=== PATIENT | male | born 1955 | race Caucasian/White ===

== ENCOUNTER 2020-07-23 10:43 | Outpatient (REF) | payer SELFPAY | END 2020-07-23 10:44 | disposition home or self-care (01) | LOC: HO.HAP 10:43 | PROVIDERS: Visit Provider Internal Medicine | DX: Z46.1 Encounter for fitting and adjustment of hearing aid (principal) | CPT/HCPCS: V5264 ==

== ENCOUNTER 2021-01-18 11:49 | Outpatient (REF) | payer MEDICARE, MEDICAID, OTHER, SELFPAY ==
[2021-01-18 14:39] LABS: SARS COV2 PCR INHOUSE NEGATIVE (Negative)
== END 2021-01-18 11:50 | disposition home or self-care (01) ==
LOC: HO.LAB 11:49
PROVIDERS: Visit Provider Internal Medicine
DX: Z20.822 Contact with and (suspected) exposure to COVID-19 (principal)
CPT/HCPCS: C9803; U0003

== ENCOUNTER 2021-01-28 07:05 | Outpatient (REF) | payer MEDICARE, OTHER, SELFPAY ==
[2021-01-28 07:51] LABS: MANUAL DIFF FLAG NO
[2021-01-28 07:53] LABS: Basophils Percent Auto 0.6 % (0-2); Eosinophils Absolute Auto 0.2 X10*3/uL (0.0-0.4); Eosinophils Percent Auto 3.1 % (0-4); Hematocrit 41.4 % (42-52); Hemoglobin 13.6 g/dl (14.0-18.0); Imm Gran Abs Auto 0.02 X10*3/uL (0.00-0.03); Imm Gran Pct Auto 0.3 % (0.0-0.4); Lymphocytes Percent Auto 30.4 % (20-40); Mean Corpuscular HGB Conc 32.9 g/dl (31.0-36.0); Mean Corpuscular Hemoglobin 30.2 pg (27.0-33.0); Mean Platelet Volume 10.7 fL (9.4-12.4); Monocytes Absolute Auto 0.7 X10*3/uL (0.1-1.2); Monocytes Percent Auto 10.1 % (2-11); Neutrophils Absolute Auto 3.7 X10*3/uL (2.0-8.3); Neutrophils Percent Auto 55.5 % (45-73); Platelet Count 226 X10*3/uL (160-400); Red Cell Distribution Width 12.8 % (11.0-16.0); White Blood Count 6.7 X10*3/uL (4.8-10.8)
[2021-01-28 08:19] LABS: Alanine Aminotransferase 27 U/L (0-40); Albumin Level 4.4 g/dL (3.5-5.0); Alkaline Phosphatase 90 U/L (39-117); Anion Gap 12 (12-20); Aspartate Amino Transferase 23 U/L (5-37); Bilirubin Total 0.7 mg/dL (0.0-1.0); Blood Urea Nitrogen 16 mg/dL (9-16); Calcium 9.2 mg/dL (8.4-10.2); Carbon Dioxide 26 mmol/L (22-29); Chloride 104 mmol/L (96-108); Cholesterol 178 mg/dL; Estimated Glomerular Filt Rate > 60; Glucose Fasting 97 mg/dL (60-99); HDL Cholesterol 47 mg/dL; LDL Cholesterol Calculated 100 mg/dl; Potassium 4.4 mmol/L (3.3-5.1); Sodium 138 mmol/L (135-145); Total Protein 7.1 g/dL (6.5-8.0); Triglycerides 157 mg/dL
[2021-01-28 08:30] LABS: Creatinine Urine 49.18 mg/dL; Microalbumin Urine < 5.0 mg/L
== END 2021-01-28 07:06 | disposition home or self-care (01) ==
LOC: HO.LAB 07:05
PROVIDERS: PCP Internal Medicine; Visit Provider Internal Medicine
DX: E78.5 Hyperlipidemia, unspecified (principal); I10 Essential (primary) hypertension; E78.00 Pure hypercholesterolemia, unspecified
CPT/HCPCS: 36415; 80053; 80061; 82043; 84443; 85025

== ENCOUNTER → 2021-06-21 09:44 | Outpatient (REF) | payer MEDICARE, OTHER, SELFPAY ==
--- NOTE | 2021-06-21 10:30 | CA_ITS ---
Transthoracic Echocardiogram Patient (Last, First, Middle): Bib Escalante P Gender: Male Date of : 1955 Age: 65 Procedure Date: 06/21/2021 Procedure Type: Transthoracic Echocardiogram Location: OP Height: 182.88 cm Weight: 108.86 kg BSA: 2.30 m2 Heart Rate: bpm BP: 120 / 80 mmHg Social Sciences Lecturer: KATHRYN Referring MD: James Martines MD Technical Account Executive: James Martines MD Symptoms: I71.2 THORACIC AA, I10 HTN, I49.3 PVCS Study Quality: Fair ECG Rhythm: Sinus Conclusions: - 1. Normal LV systolic function with grade 1 diastolic dysfunction 2. Mild aortic regurgitation 3. Mildly dilated ascending aorta at 4.4 cm 4. No pericardial effusion Findings Procedure Information Contrast agent, definity, is being given per protocol without apparent complications. Left Ventricle Normal left ventricular size, thickness, and systolic function. The visually estimated ejection fraction is between 60-65%. Spectral Doppler is indicative of an impaired relaxation filling pattern. E/E prime ratio is <8, consistent with normal filling pressures. Evidence suggests grade I (mild) diastolic dysfunction. Right Ventricle Normal right ventricular cavity size and systolic function. Atria The left atrium is normal in size. There is no evidence of interatrial shunt. The right atrium is normal in size. Aortic Valve There is mild calcification of the aortic valve. There is no aortic valve stenosis. There is mild aortic valve regurgitation. Mitral Valve Normal mitral valve structure and function. There is trace mitral valve regurgitation. There is no mitral valve stenosis. Pulmonic Valve The pulmonic valve was not well visualized. Tricuspid Valve Likely normal tricuspid valve structure and function. Tricuspid regurgitation envelope is inadequate for calculation of right ventricular systolic pressure. Great Vessels The pulmonary artery was not well visualized. There is mild dilatation of the ascending aorta measuring 4.40 cm. Venous The inferior vena cava is normal in size and collapses greater than 50% with inspiration. Pericardium/Pleural There is no evidence of pericardial effusion. Prior Study Comparison No significant change compared to prior study dated: 05/21/2020. Measurements 2D Linear Measurements IVSd: 1.31 0.6-0.9/0.6-1.0 cm LVIDd: 5.76 3.9-5.3/4.2-5.9 cm LVIDd Index: 2.50 2.4-3.2/2.2-3.1 cm/m2 LVIDs: 3.90 2.0-3.6 cm LVPWd: 1.05 0.7-1.1 cm Ao Root: 3.70 2.1-3.5 cm LA Diam: 3.40 2.7-3.8/3.0-4.0 cm LAIDs Index: 1.48 1.5-2.3 cm/m2 LV Mass: 358.06 67-162/88-224 g LV Mass Index: 155.68 43-95/49-115 g/m2 LVOT Diam: 2.20 3.0+(-)1.3 cm 2D Systolic Function EF 4C: 54.60 >55% EF 2C: 67.60 >55% EF BiP: 63.40 >55% Mitral Valve MV Pk E: 0.59 MV PK A: 0.80 MV Decel Time: 180.00 E/A: 0.70 E'Lateral: 6.96 E'Medial: 7.94 E/E' Med: 7.40 E/E' Lat: 8.40 PHT: 53.00 MVA PHT: 4.15 Decel Faulk: 3.27 Aortic Valve AoV Pk Robbin: 1.29 AoV Pk Grad: 7.00 LVOT LVOT Pk Robbin: 1.17 LVOT Mn Robbin: 0.74 LVOT VTI: 0.24 LVOT Pk Grad: 5.00 LVOT Mn Grad: 3.00 LVOT Diam: 2.20 LVOT Area: 3.80 Diastolic Function MV Pk E: 0.59 MV Pk A: 0.80 E/A: 0.70 E'Medial: 7.94 E/E' Med: 7.40 E' Laterial: 6.96 E/E' Lat: 8.40 Right Ventricle TAPSE (mm): 1.94 Tricuspid Valve RA Press: 3.00 Great Vessels Aorta Ao Root-2D: 3.70 2.0-3.7 cm Ao Asc: 4.40 2.1-3.4 cm Ao Arch: 3.70 Updated in Other Vendor System with Status of Final James Martines MD electronically signed on 06/21/2021 4:09:00 PM with status of Final
== END ==
LOC: HO.CARD 09:44
PROVIDERS: Visit Provider Internal Medicine Cardiovascular Disease
DX: I71.2 Thoracic aortic aneurysm, without rupture (principal); I10 Essential (primary) hypertension; I49.3 Ventricular premature depolarization
CPT/HCPCS: 93306; Q9957

== ENCOUNTER → 2021-07-04 08:22 | Outpatient (BNVA) | payer MEDICARE, OTHER, SELFPAY | PROVIDERS: PCP Internal Medicine; Referring Provider Internal Medicine; Visit Provider Internal Medicine Cardiovascular Disease | DX: I71.2 Thoracic aortic aneurysm, without rupture (principal); I10 Essential (primary) hypertension | CPT/HCPCS: 93005; 99212 ==

== ENCOUNTER 2021-07-14 06:03 | Outpatient (REF) | payer MEDICARE, MEDICAID, SELFPAY ==
[2021-07-14 07:19] LABS: MANUAL DIFF FLAG NO
[2021-07-14 07:29] LABS: Basophils Absolute Auto 0.1 X10*3/uL (0.0-0.2); Basophils Percent Auto 0.6 % (0-2); Eosinophils Absolute Auto 0.3 X10*3/uL (0.0-0.4); Eosinophils Percent Auto 3.7 % (0-4); Hematocrit 41.7 % (42-52); Hemoglobin 13.8 g/dl (14.0-18.0); Imm Gran Abs Auto 0.03 X10*3/uL (0.00-0.03); Imm Gran Pct Auto 0.4 % (0.0-0.4); Lymphocytes Absolute Auto 2.4 X10*3/uL (1.2-4.9); Lymphocytes Percent Auto 29.6 % (20-40); Mean Corpuscular HGB Conc 33.1 g/dl (31.0-36.0); Mean Corpuscular Hemoglobin 30.5 pg (27.0-33.0); Mean Corpuscular Volume 92.3 fL (80-98); Monocytes Absolute Auto 0.7 X10*3/uL (0.1-1.2); Neutrophils Absolute Auto 4.6 X10*3/uL (2.0-8.3); Neutrophils Percent Auto 56.7 % (45-73); Platelet Count 256 X10*3/uL (160-400); Red Blood Count 4.52 X10*6/uL (4.60-5.80); Red Cell Distribution Width 13.2 % (11.0-16.0); White Blood Count 8.1 X10*3/uL (4.8-10.8)
[2021-07-14 07:37] LABS: Appearance Urine CLEAR; Color Urine YELLOW; Glucose Urine UA NEG (NEG); Leukocyte Esterase Urine NEG (NEG); Nitrite Urine NEG (NEG); Urine Blood NEG (NEG); Urine Ketones NEG (NEG); Urine Protein NEG (NEG-TRACE)
[2021-07-14 07:45] LABS: Alanine Aminotransferase 22 U/L (0-40); Albumin Level 4.5 g/dL (3.5-5.0); Alkaline Phosphatase 97 U/L (39-117); Anion Gap 13 (12-20); Aspartate Amino Transferase 21 U/L (5-37); Bilirubin Total 0.6 mg/dL (0.0-1.0); Blood Urea Nitrogen 11 mg/dL (9-16); Calcium 9.9 mg/dL (8.4-10.2); Carbon Dioxide 25 mmol/L (22-29); Chloride 104 mmol/L (96-108); Cholesterol 176 mg/dL; Estimated Glomerular Filt Rate > 60; Glucose Fasting 92 mg/dL (60-99); HDL Cholesterol 47 mg/dL; LDL Cholesterol Calculated 103 mg/dl; Potassium 4.6 mmol/L (3.3-5.1); Sodium 137 mmol/L (135-145); Total Protein 7.1 g/dL (6.5-8.0); Triglycerides 133 mg/dL
[2021-07-14 07:55] LABS: Estimated Average Glucose 120 mg/dL; Hemoglobin A1c % 5.8 %
[2021-07-14 08:06] LABS: TSH reflex Free T4 0.98 uIU/mL (0.32-4.0)
== END 2021-07-14 06:04 | disposition home or self-care (01) ==
LOC: HO.LAB 06:03
PROVIDERS: PCP Internal Medicine; Visit Provider Internal Medicine
DX: I10 Essential (primary) hypertension (principal); R73.01 Impaired fasting glucose; E78.00 Pure hypercholesterolemia, unspecified; E66.9 Obesity, unspecified; R00.2 Palpitations
CPT/HCPCS: 36415; 80053; 80061; 81003; 83036; 84443; 85025

== ENCOUNTER 2022-01-09 12:14 | Outpatient (REF) | payer SELFPAY | END 2022-01-09 12:15 | disposition home or self-care (01) | LOC: HO.HAP 12:14 | PROVIDERS: Visit Provider Internal Medicine | DX: Z46.1 Encounter for fitting and adjustment of hearing aid (principal); H90.3 Sensorineural hearing loss, bilateral | CPT/HCPCS: 92592; 99499 ==

== ENCOUNTER 2022-02-21 06:01 | Outpatient (REF) | payer MEDICARE, OTHER, SELFPAY ==
[2022-02-21 06:14] LABS: MANUAL DIFF FLAG NO
[2022-02-21 07:36] LABS: Appearance Urine CLEAR; Color Urine YELLOW; Glucose Urine UA NEG (NEG); Leukocyte Esterase Urine NEG (NEG); Nitrite Urine NEG (NEG); Specific Gravity - Urine 1.015 (1.005-1.025); Urine Blood NEG (NEG); Urine Ketones NEG (NEG); Urine Protein NEG (NEG-TRACE)
[2022-02-21 07:39] LABS: Basophils Absolute Auto 0.1 X10*3/uL (0.0-0.2); Basophils Percent Auto 0.8 % (0-2); Eosinophils Absolute Auto 0.3 X10*3/uL (0.0-0.4); Hematocrit 41.9 % (42.0-52.0); Imm Gran Abs Auto 0.03 X10*3/uL (0.00-0.03); Imm Gran Pct Auto 0.4 % (0.0-0.4); Lymphocytes Absolute Auto 2.4 X10*3/uL (1.2-4.9); Lymphocytes Percent Auto 31.1 % (20-40); Mean Corpuscular HGB Conc 33.4 g/dl (31.0-36.0); Mean Corpuscular Hemoglobin 30.9 pg (27.0-33.0); Mean Corpuscular Volume 92.5 fL (80.0-98.0); Mean Platelet Volume 10.9 fL (9.4-12.4); Monocytes Absolute Auto 0.7 X10*3/uL (0.1-1.2); Monocytes Percent Auto 8.3 % (2-11); Neutrophils Absolute Auto 4.4 x10*3/uL (2.0-8.3); Neutrophils Percent Auto 55.4 % (45-73); Platelet Count 254 X10*3/uL (160-400); Red Blood Count 4.53 X10*6/uL (4.60-5.80); Red Cell Distribution Width 12.6 % (11.0-16.0); White Blood Count 7.8 X10*3/uL (4.8-10.8)
[2022-02-21 08:21] LABS: TSH reflex Free T4 1.37 uIU/mL (0.32-4.0); Vitamin D 25-OH Total 81.6 ng/mL (>30)
[2022-02-21 08:24] LABS: Estimated Average Glucose 128 mg/dL; Hemoglobin A1c % 6.1 %
[2022-02-21 08:31] LABS: Alanine Aminotransferase 25 U/L (0-40); Albumin Level 4.3 g/dL (3.5-5.0); Alkaline Phosphatase 96 U/L (39-117); Anion Gap 14 (12-20); Aspartate Amino Transferase 22 U/L (5-37); Bilirubin Total 0.8 mg/dL (0.0-1.0); Blood Urea Nitrogen 13 mg/dL (9-16); Calcium 9.7 mg/dL (8.4-10.2); Carbon Dioxide 25 mmol/L (22-29); Chloride 105 mmol/L (96-108); Cholesterol 191 mg/dL; Estimated Glomerular Filt Rate > 60; Glucose Fasting 86 mg/dL (60-99); HDL Cholesterol 41 mg/dL; LDL Cholesterol Calculated 122 mg/dl; Potassium 4.5 mmol/L (3.3-5.1); Sodium 139 mmol/L (135-145); Total Protein 7.3 g/dL (6.5-8.0); Triglycerides 141 mg/dL
== END 2022-02-21 06:02 | disposition home or self-care (01) ==
LOC: HO.LAB 06:01
PROVIDERS: PCP Internal Medicine; Visit Provider Internal Medicine
DX: E55.9 Vitamin D deficiency, unspecified (principal); I10 Essential (primary) hypertension; E78.00 Pure hypercholesterolemia, unspecified; R73.01 Impaired fasting glucose
CPT/HCPCS: 36415; 80053; 80061; 81003; 82306; 83036; 84443; 85025

== ENCOUNTER → 2022-06-28 14:00 | Outpatient (REF) | payer MEDICARE, MEDICAID, OTHER, SELFPAY ==
--- NOTE | 2022-06-28 14:03 | CA_ITS ---
Transthoracic Echocardiogram Patient (Last, First, Middle): Bib Escalante P Gender: Male Date of : 1955 Age: 66 Procedure Date: 06/28/2022 Procedure Type: Transthoracic Echocardiogram Location: OP Height: 182.88 cm Weight: 109.77 kg BSA: 2.31 m2 Heart Rate: 70 bpm BP: 128 / 78 mmHg Frame Table Operator Helper: [email or web address] Referring MD: James Martines MD Heel Painter: James Martines MD Symptoms: I71.2 - Thoracic aortic aneurysm, without rupture Study Quality: Adequate w Contrast ECG Rhythm: Sinus Conclusions: - 1. Normal LV systolic function grade 1 diastolic dysfunction 2. Mild aortic regurgitation 3. Moderately dilated ascending aorta at 4.6 cm 4. No gross pericardial effusion Findings Procedure Information Contrast agent, definity, is being given per protocol without apparent complications. Left Ventricle Normal left ventricular size, thickness, and systolic function. The visually estimated ejection fraction is between 60-65%. Spectral Doppler is indicative of an impaired relaxation filling pattern. E/E prime ratio is <8, consistent with normal filling pressures. Evidence suggests grade I (mild) diastolic dysfunction. Right Ventricle The right ventricle was not well visualized. Atria The left atrium is likely dilated. There is lipomatous hypertrophy of the interatrial septum. There is no evidence of interatrial shunt. The right atrium is normal in size. Aortic Valve The aortic valve was not well visualized. There is no aortic valve stenosis. There is mild aortic valve regurgitation. Mitral Valve Likely normal mitral valve structure and function. There is trace mitral valve regurgitation. There is no mitral valve stenosis. Pulmonic Valve The pulmonic valve was not well visualized. Tricuspid Valve Likely normal tricuspid valve structure and function. Tricuspid regurgitation envelope is inadequate for calculation of right ventricular systolic pressure. Great Vessels The pulmonary artery was not well visualized. There is moderate dilatation of the ascending aorta measuring 4.60 cm. Venous The inferior vena cava is normal in size and collapses greater than 50% with inspiration. Pericardium/Pleural There is no evidence of pericardial effusion. Prior Study Comparison Changes noted compared to prior study dated: 06/21/2021. Ascending aorta is measured at 4.6 cm compared to 4.4 cm last time. Measurements 2D Linear Measurements IVSd: 1.23 0.6-0.9/0.6-1.0 cm LVIDd: 5.84 3.9-5.3/4.2-5.9 cm LVIDd Index: 2.53 2.4-3.2/2.2-3.1 cm/m2 LVIDs: 3.29 2.0-3.6 cm LVPWd: 0.95 0.7-1.1 cm LA Diam: 4.30 2.7-3.8/3.0-4.0 cm LAIDs Index: 1.86 1.5-2.3 cm/m2 LV Mass: 329.74 67-162/88-224 g LV Mass Index: 142.75 43-95/49-115 g/m2 LVOT Diam: 2.30 3.0+(-)1.3 cm 2D Systolic Function EF 4C: 64.60 >55% EF 2C: 57.10 >55% EF BiP: 59.10 >55% Mitral Valve MV Pk E: 0.69 MV PK A: 0.82 MV Decel Time: 187.00 E/A: 0.80 E'Lateral: 7.83 E'Medial: 6.53 E/E' Med: 10.50 E/E' Lat: 8.80 PHT: 55.00 MVA PHT: 4.00 Decel Lucas: 3.67 Aortic Valve AoV Pk Robbin: 1.24 AoV Mn Robbin: 0.84 AoV VTI: 0.25 AoV Pk Grad: 6.00 Aov Mn Grad: 3.00 JOSE Cont.VTI: 3.71 LVOT LVOT Pk Robbin: 1.21 LVOT Mn Robbin: 0.78 LVOT VTI: 0.22 LVOT Pk Grad: 6.00 LVOT Mn Grad: 3.00 LVOT Diam: 2.30 LVOT Area: 4.15 Diastolic Function MV Pk E: 0.69 MV Pk A: 0.82 E/A: 0.80 E'Medial: 6.53 E/E' Med: 10.50 E' Laterial: 7.83 E/E' Lat: 8.80 Right Ventricle TAPSE (mm): 24.20 TVS' Robbin: 13.70 Tricuspid Valve RA Press: 3.00 Great Vessels Aorta Sinus of Valsalva: 4.50 2.0-3.5 cm Ao Asc: 4.60 2.1-3.4 cm Ao Arch: 3.80 Ao Desc: 1.90 Pulmonary Veins Pulm Vein S/D 1.40 Pulmonary Valve PV Pk Robbin: 1.03 Peak PV Grad: 4.00 Updated in Other Vendor System with Status of Final James Martines MD electronically signed on 06/28/2022 4:01:34 PM with status of Final
== END ==
LOC: HO.CARD 14:00
PROVIDERS: PCP Internal Medicine; Visit Provider Internal Medicine Cardiovascular Disease
DX: I71.2 Thoracic aortic aneurysm, without rupture (principal)
CPT/HCPCS: 93306; Q9957

== ENCOUNTER → 2022-07-10 08:29 | Outpatient (BNVA) | payer MEDICARE, OTHER, SELFPAY | PROVIDERS: PCP Internal Medicine; Referring Provider Internal Medicine; Visit Provider Internal Medicine Cardiovascular Disease | DX: I71.2 Thoracic aortic aneurysm, without rupture (principal); I10 Essential (primary) hypertension; Z79.82 Long term (current) use of aspirin; Z79.899 Other long term (current) drug therapy | CPT/HCPCS: 93005; 99212 ==

== ENCOUNTER 2022-09-22 12:39 | Outpatient (REF) | payer SELFPAY | END 2022-09-22 12:40 | disposition home or self-care (01) | LOC: HO.HAP 12:39 | PROVIDERS: Visit Provider Internal Medicine | DX: Z46.1 Encounter for fitting and adjustment of hearing aid (principal); H90.3 Sensorineural hearing loss, bilateral | CPT/HCPCS: 92592; 92700; V5266 ==

== ENCOUNTER 2022-10-19 05:56 | Outpatient (REF) | payer MEDICARE, MEDICAID, SELFPAY ==
[2022-10-19 06:01] LABS: MANUAL DIFF FLAG NO
[2022-10-19 07:25] LABS: Basophils Absolute Auto 0.1 X10*3/uL (0.0-0.2); Basophils Percent Auto 0.9 % (0-2); Eosinophils Absolute Auto 0.3 X10*3/uL (0.0-0.4); Eosinophils Percent Auto 4.5 % (0-4); Imm Gran Abs Auto 0.03 X10*3/uL (0.00-0.03); Imm Gran Pct Auto 0.4 % (0.0-0.4); Lymphocytes Absolute Auto 2.5 X10*3/uL (1.2-4.9); Lymphocytes Percent Auto 32.9 % (20-40); Mean Corpuscular HGB Conc 33.3 g/dl (31.0-36.0); Mean Corpuscular Volume 90.1 fL (80.0-98.0); Mean Platelet Volume 11.1 fL (9.4-12.4); Monocytes Absolute Auto 0.6 X10*3/uL (0.1-1.2); Monocytes Percent Auto 8.4 % (2-11); Neutrophils Percent Auto 52.9 % (45-73); Platelet Count 249 X10*3/uL (160-400); Red Blood Count 4.66 X10*6/uL (4.60-5.80); Red Cell Distribution Width 13.1 % (11.0-16.0); White Blood Count 7.6 X10*3/uL (4.8-10.8)
[2022-10-19 07:57] LABS: Estimated Average Glucose 117 mg/dL; Hemoglobin A1c % 5.7 %
[2022-10-19 08:17] LABS: Alanine Aminotransferase 33 U/L (0-40); Albumin Level 4.5 g/dL (3.5-5.0); Alkaline Phosphatase 104 U/L (39-117); Anion Gap 12 (12-20); Aspartate Amino Transferase 24 U/L (5-37); Blood Urea Nitrogen 13 mg/dL (9-16); Calcium 9.6 mg/dL (8.4-10.2); Carbon Dioxide 25 mmol/L (22-29); Chloride 106 mmol/L (96-108); Cholesterol 144 mg/dL; Estimated Glomerular Filt Rate > 60; Glucose Fasting 93 mg/dL (60-99); HDL Cholesterol 39 mg/dL; LDL Cholesterol Calculated 74 mg/dl; Potassium 4.2 mmol/L (3.3-5.1); Sodium 139 mmol/L (135-145); TSH reflex Free T4 1.36 uIU/mL (0.32-4.0); Total Protein 7.1 g/dL (6.5-8.0); Triglycerides 155 mg/dL; Vitamin D 25-OH Total 55.5 ng/mL (>30)
[2022-10-19 09:06] LABS: Appearance Urine Clear; Color Urine Yellow; Glucose Urine UA Negative (Negative); Leukocyte Esterase Urine Negative (Negative); Nitrite Urine Negative (Negative); Specific Gravity - Urine 1.015 (1.005-1.025); Urine Blood Negative (Negative); Urine Ketones Negative (Negative); Urine Protein Negative (Neg-Trace)
[2022-10-19 10:07] LABS: Microalbum/Creatinine Ratio Ur 5.9 ug/mg cr
== END 2022-10-19 05:57 | disposition home or self-care (01) ==
LOC: HO.LAB 05:56
PROVIDERS: PCP Internal Medicine; Visit Provider Internal Medicine
DX: I10 Essential (primary) hypertension (principal); I25.10 Atherosclerotic heart disease of native coronary artery without angina pectoris; I71.21 Aneurysm of the ascending aorta, without rupture; R73.01 Impaired fasting glucose; E78.00 Pure hypercholesterolemia, unspecified; E55.9 Vitamin D deficiency, unspecified
CPT/HCPCS: 36415; 80053; 80061; 81003; 82043; 82306; 83036; 84443; 85025

== ENCOUNTER 2023-01-15 10:52 | Outpatient (REF) | payer SELFPAY | END 2023-01-15 10:53 | disposition home or self-care (01) | LOC: HO.HAP 10:52 | PROVIDERS: Visit Provider Internal Medicine | DX: Z46.1 Encounter for fitting and adjustment of hearing aid (principal); H90.3 Sensorineural hearing loss, bilateral | CPT/HCPCS: V5266 ==

== ENCOUNTER 2023-04-11 06:06 | Outpatient (REF) | payer MEDICARE, MEDICAID, SELFPAY ==
[2023-04-11 06:17] LABS: MANUAL DIFF FLAG NO
[2023-04-11 07:42] LABS: Basophils Absolute Auto 0.1 X10*3/uL (0.0-0.2); Basophils Percent Auto 0.9 % (0-2); Eosinophils Absolute Auto 0.4 X10*3/uL (0.0-0.4); Eosinophils Percent Auto 5.2 % (0-4); Hematocrit 41.8 % (42.0-52.0); Hemoglobin 13.9 g/dl (14.0-18.0); Imm Gran Abs Auto 0.02 X10*3/uL (0.00-0.03); Imm Gran Pct Auto 0.3 % (0.0-0.4); Lymphocytes Absolute Auto 2.5 X10*3/uL (1.2-4.9); Lymphocytes Percent Auto 32.8 % (20-40); Mean Corpuscular HGB Conc 33.3 g/dl (31.0-36.0); Mean Corpuscular Volume 93.3 fL (80.0-98.0); Mean Platelet Volume 10.9 fL (9.4-12.4); Monocytes Absolute Auto 0.8 X10*3/uL (0.1-1.2); Monocytes Percent Auto 10.2 % (2-11); Neutrophils Absolute Auto 3.8 x10*3/uL (2.0-8.3); Neutrophils Percent Auto 50.6 % (45-73); Platelet Count 244 X10*3/uL (160-400); Red Blood Count 4.48 X10*6/uL (4.60-5.80); Red Cell Distribution Width 13.1 % (11.0-16.0); White Blood Count 7.6 X10*3/uL (4.8-10.8)
[2023-04-11 08:08] LABS: Alanine Aminotransferase 25 U/L (0-40); Albumin Level 4.3 g/dL (3.5-5.0); Alkaline Phosphatase 94 U/L (39-117); Anion Gap 13 (12-20); Aspartate Amino Transferase 21 U/L (5-37); Blood Urea Nitrogen 11 mg/dL (9-16); Calcium 9.7 mg/dL (8.4-10.2); Carbon Dioxide 25 mmol/L (22-29); Chloride 104 mmol/L (96-108); Cholesterol 145 mg/dL; Estimated Glomerular Filt Rate > 60; Glucose Fasting 84 mg/dL (60-99); HDL Cholesterol 45 mg/dL; LDL Cholesterol Calculated 69 mg/dl; Sodium 138 mmol/L (135-145); Total Protein 7.4 g/dL (6.5-8.0); Triglycerides 156 mg/dL
[2023-04-11 08:23] LABS: TSH reflex Free T4 1.29 uIU/mL (0.32-4.0); Vitamin D 25-OH Total 56.7 ng/mL (>30)
[2023-04-11 09:29] LABS: Appearance Urine Clear; Color Urine Yellow; Glucose Urine UA Negative (Negative); Leukocyte Esterase Urine Negative (Negative); Nitrite Urine Negative (Negative); PH 7.5 (5.0-9.0); Specific Gravity - Urine 1.015 (1.005-1.025); Urine Blood Negative (Negative); Urine Ketones Negative (Negative); Urine Protein Negative (Neg-Trace)
== END 2023-04-11 06:07 | disposition home or self-care (01) ==
LOC: HO.LAB 06:06
PROVIDERS: PCP Internal Medicine; Visit Provider Internal Medicine
DX: I10 Essential (primary) hypertension (principal); E78.00 Pure hypercholesterolemia, unspecified; R30.0 Dysuria; E55.9 Vitamin D deficiency, unspecified
CPT/HCPCS: 36415; 80053; 80061; 81003; 82306; 84443; 85025

== ENCOUNTER → 2023-07-24 12:31 | Outpatient (REF) | payer MEDICARE, MEDICAID, SELFPAY ==
--- NOTE | 2023-07-24 12:33 | CA_ITS ---
Transthoracic Echocardiogram Patient (Last, First, Middle): Bib Escalante P Gender: Male Date of : 1955 Age: 68 Procedure Date: 07/24/2023 Procedure Type: Transthoracic Echocardiogram Location: OP Height: 182.88 cm Weight: 112.04 kg BSA: 2.33 m2 Heart Rate: bpm BP: 140 / 90 mmHg Saddle And Side Wire Stitcher: TO Referring MD: James Martines MD Symptoms: I71.2 - Thoracic aortic aneurysm, without rupture Study Quality: Adequate with contrast ECG Rhythm: Sinus Conclusions: - The left ventricular systolic function is normal. The calculated ejection fraction is 68% by biplane method. - No obvious valvular pathology seen on this study. - There is mild dilatation of the sinuses of Valsalva measuring 4.30 cm and mild dilatation of the ascending aorta measuring 4.40 cm. Findings Procedure Information Contrast agent, definity, is being given per protocol without apparent complications. Left Ventricle Normal left ventricular cavity size. There is mildly increased left ventricular wall thickness. The left ventricular systolic function is normal. The calculated ejection fraction is 68% by biplane method. There is no evidence of regional wall motion abnormalities. Diastolic function is normal for age. Right Ventricle Mildly increased right ventricular cavity size. There is normal right ventricular systolic function. Atria Both atria are normal in size. Aortic Valve There is a normal trileaflet aortic valve. There is mild calcification of the aortic valve. There is no aortic valve stenosis. There is no aortic valve regurgitation. Mitral Valve The mitral valve appears normal. There is no mitral valve regurgitation. There is no mitral valve stenosis. Pulmonic Valve The pulmonic valve is likely normal. Tricuspid Valve There is no tricuspid valve regurgitation. Tricuspid regurgitation envelope is inadequate for calculation of right ventricular systolic pressure. Great Vessels There is mild dilatation of the sinuses of Valsalva measuring 4.30 cm and mild dilatation of the ascending aorta measuring 4.40 cm. Small plaque is seen in the sinuses of Valsalva. Venous The inferior vena cava is normal in size and collapses greater than 50% with inspiration. Pericardium/Pleural There is no evidence of pericardial effusion. Prior Study Comparison No significant change compared to prior study dated: 06/28/2022. Recommendations, Care & Conclusions No obvious valvular pathology seen on this study. Measurements 2D Linear Measurements IVSd: 1.30 0.6-0.9/0.6-1.0 cm LVIDd: 5.30 3.9-5.3/4.2-5.9 cm LVIDd Index: 2.27 2.4-3.2/2.2-3.1 cm/m2 LVIDs: 3.20 2.0-3.6 cm LVPWd: 1.20 0.7-1.1 cm LA Diam: 4.40 2.7-3.8/3.0-4.0 cm LAIDs Index: 1.89 1.5-2.3 cm/m2 LV Mass: 338.70 67-162/88-224 g LV Mass Index: 145.37 43-95/49-115 g/m2 LVOT Diam: 2.30 3.0+(-)1.3 cm 2D Systolic Function EF 4C: 67.30 >55% EF 2C: 66.70 >55% EF BiP: 67.60 >55% Mitral Valve MV Pk E: 0.67 MV PK A: 0.61 MV Decel Time: 234.00 E/A: 1.10 E'Lateral: 6.20 E'Medial: 5.66 E/E' Med: 11.80 E/E' Lat: 10.80 PHT: 69.00 MVA PHT: 3.19 Decel [place]: 2.85 Aortic Valve AoV Pk Robbin: 1.52 AoV Mn Robbin: 0.95 AoV VTI: 0.29 AoV Pk Grad: 9.00 Aov Mn Grad: 4.00 JOSE Cont.VTI: 2.70 LVOT LVOT Pk Robbin: 0.86 LVOT Mn Robbin: 0.54 LVOT VTI: 0.19 LVOT Pk Grad: 3.00 LVOT Mn Grad: 1.00 LVOT Diam: 2.30 LVOT Area: 4.15 Diastolic Function MV Pk E: 0.67 MV Pk A: 0.61 E/A: 1.10 E'Medial: 5.66 E/E' Med: 11.80 E' Laterial: 6.20 E/E' Lat: 10.80 Right Ventricle TAPSE (mm): 25.70 TVS' Robbin: 14.90 Tricuspid Valve RA Press: 3.00 Great Vessels Aorta Sinus of Valsalva: 4.30 2.0-3.[address] [place]: 3.40 1.7-3.4 cm Ao Asc: 4.40 2.1-3.4 cm Updated in Other Vendor System with Status of Final Wilian Shin MD electronically signed on 07/25/2023 12:07:52 PM with status of Final
== END ==
LOC: HO.CARD 12:31
PROVIDERS: PCP Internal Medicine; Visit Provider Internal Medicine Cardiovascular Disease
DX: I71.20 Thoracic aortic aneurysm, without rupture, unspecified (principal)
CPT/HCPCS: 93306; Q9957

== ENCOUNTER → 2023-07-24 12:33 | Outpatient (BNV) | payer MEDICARE, MEDICAID, SELFPAY | PROVIDERS: PCP Internal Medicine; Visit Provider Internal Medicine | DX: I35.8 Other nonrheumatic aortic valve disorders (principal) | CPT/HCPCS: 93306 ==

== ENCOUNTER 2023-07-31 09:23 | Outpatient (AMB) | payer MEDICARE, SELFPAY ==
[2023-07-31 09:27] VITALS: BP 140/92; PULSE 72; BMI 34.0
--- NOTE | 2023-07-31 09:27 | MHC.OFFVIS ---
Intake Vital Signs 07/31/23 09:27 Height 6 ft Weight 250 lb 7.122 oz BMI 34.0 BP 140/92 H Blood Pressure Location Lt brachial Position Sitting Pulse 72 Intake Visit Reasons: follow up after echo Intake Note: f/u after echo Fibre Technologist Required: No Allergies Lisinopril Adverse Reaction (Intermediate, Uncoded 04/18/23 09:18) diarrhea Medication List - Last Reconciled 07/31/23 by Marialuisa Adrian, FADY-C amlodipine 5 mg PO DAILY 90 days aspirin (Adult Aspirin Regimen) 81 mg PO DAILY atorvastatin 40 mg PO BEDTIME 90 days ezetimibe 10 mg PO DAILY metoprolol succinate ER 100 mg PO DAILY HPI follow up after echo HPI Details Bib is a 68-year-old male with past medical history of hypertension, hyperlipidemia, obesity, dilated thoracic ascending aorta who presents for follow-up after recent echocardiogram. Today he reports that he has been doing well since his last visit 07/10/2022. He denies any chest discomfort at rest or with activity. No shortness of breath, palpitations presyncope, syncope, PND, orthopnea or edema. He is active with walking daily. Taking meds as directed. No change in his health over the last year. [facility] Medical History Pure hypercholesterolemia Benign essential hypertension Thoracic aortic aneurysm Obesity (BMI 30-39.9) Depression Anxiety History of alcohol use Osteoarthritis of left foot Malignant melanoma of face Ocular hypertension Impaired fasting glucose Palpitations Hypertension Hyperlipidemia Surgical History History of melanoma excision Status post Mohs surgery (~07/09/17) Family History Father Hypertension Stroke Mother Hypertension CVD (cardiovascular disease) Son No problems noted. Social History Housing: House Alcohol intake: former Patient Tobacco Use Status: Former Tobacco user e-Cigarette/Vaping Use: Never Used Second Hand Smoke Exposure: Yes service: No Current occupational status: retired Cognitive needs: No Hearing needs: Yes (hearing aide) Vision needs: No Review of Systems Const All systems reviewed & are unremarkable except as noted in HPI and below ENT Denies dizziness Card Denies chest pain, Denies chest pain at rest, Denies chest pain with activity, Denies rapid heart rate, Denies pedal edema, Denies edema, Denies leg edema, Denies lightheadedness, Denies palpitations, Denies dyspnea, Denies dyspnea on exertion and Denies orthopnea Resp Denies cough, Denies dyspnea and Denies dyspnea on exertion GI Denies hematochezia and Denies change in stool character Musc Denies abnormal gait, Denies limited range of motion, Denies muscle cramps, Denies muscle weakness, Denies numbness, Denies radiating pain into limb, Denies stiffness and Denies tingling Neuro Denies abnormal gait, Denies dizziness, Denies numbness and Denies tingling Endo Denies palpitations Physical Exam Vital Signs: Last Vital Signs BP 140/92 H 07/31/23 09:27 BMI result Body Mass Index 34.0 Const General: cooperative, healthy appearing, comfortable and no acute distress Orientation/consciousness: patient oriented x3 Neck Neck: Yes normal visual inspection Resp Effort & Inspection: normal respiratory effort Auscultation: clear to auscultation bilaterally, no crackles, no rales, no rhonchi and no wheezes Cardio Jugular venous distension: no JVD Rate: regular rate Rhythm: regular rhythm Heart sounds: S1 normal heart sound present, S2 normal heart sound present, no murmurs and no rubs Neuro General: patient oriented x3 Extrem General: Yes normal to inspection Psych Appearance: grossly normal Mental Status: mental status grossly normal Speech and movement: Normal speech and movement present Office Procedures EKG Details: Today, read by me, normal sinus rhythm, no acute ST or T-wave abnormalities, rate 72, QTC 438 millisecond [id number], Complete Assessment & Plan Assessment & Plan (1) Thoracic aortic aneurysm: Comment: 4.4 cm by echo 05/2021 Code(s): I71.2 - Thoracic aortic aneurysm, without rupture Qualifiers: Thoracic aorta location: unspecified Presence of rupture: without rupture Qualified Code(s): I71.20 - Thoracic aortic aneurysm, without rupture, unspecified Plan: History of dilated ascending aorta. Had echocardiogram 06/28/2022 showed normal EF, ascending aorta 4.6 cm. Repeat echocardiogram done 07/24/2023 shows normal EF 68%, dilation at sinus of Valsalva 4.3 cm, ascending aorta 4.4 cm. No significant change since last echo. Test results reviewed with him. He is on good blood pressure and cholesterol control agents. Benefits a weight loss reviewed. No med changes made at this time. Plan for repeat echo in 1 year, cardiology follow-up 1 year, sooner if needed (2) Benign essential hypertension: Code(s): I10 - Essential (primary) hypertension Plan: Elevated at this visit however he tells me his checks his blood pressure at home frequently and it is usually 120s over 70s. He is on amlodipine, metoprolol for blood pressure control. Instructed to increase his physical activity and continue to work on weight loss. Low-salt diet reviewed. Continue same medications. Informed that if his blood pressure is running with systolic over 140 he is to call this office. He states understanding. (3) Pure hypercholesterolemia: Code(s): E78.00 - Pure hypercholesterolemia, unspecified Plan: Lyman LDL goal less than 70. Labs done 04/11/2023 shows LDL 69. Continue Zetia 10mg daily and atorvastatin 40 mg daily Orders: Orders CA echo transthorac w con 50 Weeks I71.2 - Thoracic aortic aneurysm, without rupture Coding Level of Care Code Est Pt Level 3 (35486) Diagnoses Thoracic aortic aneurysm without rupture, unspecified part I71.20 Thoracic aorta location: unspecified Presence of rupture: without rupture Benign essential hypertension I10 Pure hypercholesterolemia E78.00 CPT Codes EKG - CPT: 98117-[id number], Complete ([id number]) Time Spent (min) 24
== END 2023-07-31 09:52 | disposition home or self-care (01) ==
PROVIDERS: PCP Internal Medicine; Visit Provider Nurse Practitioner Family
DX: I71.20 Thoracic aortic aneurysm, without rupture, unspecified (principal); I10 Essential (primary) hypertension; E78.00 Pure hypercholesterolemia, unspecified
CPT/HCPCS: 93010; 99213

== ENCOUNTER → 2023-07-31 09:23 | Outpatient (BNVA) | payer MEDICARE, OTHER, SELFPAY | PROVIDERS: PCP Internal Medicine; Visit Provider Nurse Practitioner Family | DX: I71.20 Thoracic aortic aneurysm, without rupture, unspecified (principal); I10 Essential (primary) hypertension; E78.00 Pure hypercholesterolemia, unspecified | CPT/HCPCS: 93005; 99212 ==

== ENCOUNTER 2023-08-08 06:05 | Outpatient (REF) | payer MEDICARE, SELFPAY ==
[2023-08-08 07:14] LABS: Alanine Aminotransferase 29 U/L (0-40); Albumin Level 4.3 g/dL (3.5-5.0); Alkaline Phosphatase 93 U/L (39-117); Anion Gap 16 (12-20); Aspartate Amino Transferase 26 U/L (5-37); Bilirubin Total 0.7 mg/dL (0.0-1.0); Blood Urea Nitrogen 11 mg/dL (9-16); Calcium 10.1 mg/dL (8.4-10.2); Carbon Dioxide 23 mmol/L (22-29); Chloride 104 mmol/L (96-108); Cholesterol 154 mg/dL (<200); Estimated Glomerular Filt Rate > 60; Glucose Fasting 97 mg/dL (60-99); HDL Cholesterol 44 mg/dL (>40); LDL Cholesterol Calculated 82 mg/dL (<100); Potassium 4.3 mmol/L (3.3-5.1); Sodium 139 mmol/L (135-145); Total Protein 7.4 g/dL (6.5-8.0); Triglycerides 142 mg/dL (<150)
== END 2023-08-08 06:06 | disposition home or self-care (01) ==
LOC: HO.LAB 06:05
PROVIDERS: PCP Internal Medicine; Visit Provider Nurse Practitioner Family
DX: I10 Essential (primary) hypertension (principal); E78.00 Pure hypercholesterolemia, unspecified
CPT/HCPCS: 36415; 80053; 80061

== ENCOUNTER 2023-08-14 10:45 | Outpatient (AMB) | payer MEDICARE, SELFPAY ==
--- NOTE | 2023-08-14 10:48 | A.OFFPC_ITS ---
Vital Signs 08/14/23 10:49 Height 6 ft Weight 244 lb BMI 33.1 BP 122/84 Blood Pressure Location Lt brachial Position Sitting Pulse 75 Pulse Source Pulse Oximeter Pulse Oximetry (%) 95 Oxygen Delivery Method Room Air Intake Visit Reasons: HTN, HLD Painting Instructor Required: No Accompanied by: Self / Same As Patient Allergies Lisinopril Adverse Reaction (Intermediate, Uncoded 08/14/23 11:16) diarrhea Medication List - Last Reconciled 08/14/23 by Janak Garcia MD amlodipine 5 mg PO DAILY 90 days aspirin (Adult Aspirin Regimen) 81 mg PO DAILY atorvastatin 40 mg PO BEDTIME 90 days ezetimibe 10 mg PO DAILY metoprolol succinate ER 100 mg PO DAILY Tobacco use date assessed: 08/14/23 Fall risk assessment: No Falls in past year Last assessed Fall Risk: 08/14/23 Dental Screening Dental Screen Date: 08/14/23 Did you have a dental visit in the last 12 months?: No Did you have a dental problem in the last 6 months where you did not have access to dental care?: No Was dental information given to patient?: No HPI HTN, HLD HPI Details Patient comes in today for his follow up visit States that he feels well He denies any headaches or dizziness Denies any chest pains, no SOB No nausea/vomiting, no abdominal pain No change in bowel habits noted Had his follow up labs done last week - to discuss his results He would also like to get his flu shot today PFSH Medical History Pure hypercholesterolemia Benign essential hypertension Thoracic aortic aneurysm Obesity (BMI 30-39.9) Depression Anxiety History of alcohol use Osteoarthritis of left foot Malignant melanoma of face Ocular hypertension Impaired fasting glucose Palpitations Hypertension Hyperlipidemia Surgical History History of melanoma excision Status post Mohs surgery (~07/09/17) Family History Father Hypertension Stroke Mother Hypertension CVD (cardiovascular disease) Son No problems noted. Social History Housing: House Alcohol intake: former Patient Tobacco Use Status: Former Tobacco user e-Cigarette/Vaping Use: Never Used Second Hand Smoke Exposure: Yes service: No Current occupational status: retired Cognitive needs: No Hearing needs: Yes (hearing aide) Vision needs: No Questionnaire PHQ-9 Over the last 2 weeks, how often have you been bothered by any of the following problems? 1. Little interest or pleasure in doing things: not at all 2. Feeling down, depressed, or hopeless: not at all 3. Trouble falling or staying asleep, or sleeping too much: not at all 4. Feeling tired or having little energy: not at all 5. Poor appetite or overeating: not at all 6. Feeling bad about yourself - or that you are a failure or have let yourself or your family down: not at all 7. Trouble concentrating on things, such as reading the newspaper or watching te levision: not at all 8. Moving or speaking so slowly that other people could have noticed. Or the opposite - being so fidgety or restless that you have been moving around a lot more than usual: not at all 9. Thoughts that you would be better off or of hurting yourself in some way: not at all Total score: 0 Depression Screening Interpretation: Negative Depression Screening Done: Yes 24582 - PHQ-9 Billing: Yes Source: Developed by Drs. Julio Grubbs, Rafaela Claire, Cedrick Beckford and colleagues, with an educational marie from [employer]. Thrive Questionnaire Date Thrive assessed: 08/14/23 I am a: Patient What is your living situation today?: I have a steady place to live Within the past 12 months, did the food you bought not last and you didn't have the money to get more?: Never true Within the past 12 months, did you worry whether your food would run out before you got money to buy more?: Never true Do you have trouble paying for medicines?: No Do you have trouble getting transportation to medical appointments?: No Do you have trouble paying your heating and electricity bill?: No Do you have trouble taking care of your child, family member or friend?: No Do you have trouble with day-to-day activities such as bathing, preparing meals, shopping, managing finances, etc.?: No Are you currently unemployed and looking for a job?: No Are you interested in more education?: No Please select the resources that you would like help with: None Currently or been in a relationship where the following occur: no concerns reported AUDIT C Alcohol Use Questionnaire (AUDIT-C) 1. How often do you have a drink containing alcohol?: Never Total Score: 0 Score Reviewed/Action Taken: Yes CARLA-7 AMB Questionnaire CARLA-7 Date CARLA - 7 assessed: 08/14/23 Feeling nervous, anxious, or on edge: 0 = Not at all Not being able to stop or control worryin = Not at all Worrying too much about different things: 0 = Not at all Trouble relaxin = Not at all Being so restless that it is hard to sit still: 0 = Not at all Becoming easily annoyed or irritable: 0 = Not at all Feeling afraid as if something awful might happen: 0 = Not at all Total CARLA-7 score (0-4 normal; 5-9 mild; 10-14 moderate; 15-21 severe): 0 Source: Developed by Drs. Julio Grubbs, Rafaela Claire, Cedrick Beckford and colleagues, with an educational marie from [employer]. Review of Systems Const Denies chills, Denies fatigue, Denies fever(s) and Denies headache(s) ENT Denies dysphagia, Denies dizziness, Denies otalgia, Denies headache(s), Denies odynophagia and Denies sore throat Card Denies chest pain, Denies palpitations and Denies dyspnea Resp Denies cough and Denies dyspnea GI Denies abdominal pain, Denies constipation, Denies dysphagia, Denies heartburn, Denies diarrhea, Denies nausea, Denies odynophagia and Denies vomiting Denies dysuria, Denies nocturia and Denies urinary frequency Musc Reports arthralgias (on and off, relieved with OTC acetaminophen) Skin/Breast Denies rash Neuro Denies dizziness and Denies headache(s) Endo Denies fatigue and Denies palpitations Physical exam (Primary Care) Vital Signs: Last Vital Signs Pulse 75 08/14/23 10:49 BP 122/84 08/14/23 10:49 Pulse Ox 95 08/14/23 10:49 Oxygen Delivery Method Room Air 08/14/23 10:49 BMI result Body Mass Index 33.1 Tobacco/Smoking Status: Tobacco use Status Tobacco use date assessed 08/14/23 08/14/23 10:53 Patient Tobacco Use Status Former Tobacco user 08/14/23 10:53 e-Cigarette/Vaping Use Never Used 08/14/23 10:53 PHQ-9: PHQ-9 Score PHQ-9: Total score 0 08/14/23 11:07 Depression Screening Interpretation: Negative Thrive Assessment: Date of Thrive Assessment Date Thrive assessed 08/14/23 08/14/23 10:53 Currently or been in a relationship where the following occur: no concerns reported Const General: no acute distress and alert HENMT Ears: TM's normal bilaterally and EAC's normal Throat: Yes posterior oropharynx normal and Yes tonsils normal (no TP congestion noted) Neck Neck: Yes no lymphadenopathy and Yes supple Resp Auscultation: clear to auscultation bilaterally, no rales and no wheezes Cardio Rate: regular rate Rhythm: regular rhythm Heart sounds: no murmurs GI Palpation (GI): Soft to palpation and nontender Auscultation: normal bowel sounds Extrem General: Yes no clubbing, cyanosis or edema Office Procedures Flu Questionnaire Does the patient have a severe egg allergy?: No Does the patient have severe life threatening allergies?: No Does the patient have a fever or illness today?: No Has the patient ever had Guillain-[place] Syndrome?: No Has the patient ever had any past reaction to a flu shot?: No Immunizations flu vacc [id number] 6mos up(PF) 60 mcg(15 mcgx4)/0.5 mL IM syringe Performing Provider: Janak Garcia MD [facility] Administered by: Yana Stanford on 08/14/23 11:07 Dose Route Admin Location Dispensed Lot Number Expiration Date NDC Body Rolling Machine Tender 0.5 mL IM Left Deltoid 0.5 mL [id number] 04/20/24 [id number] [employer] VIS Given Date VIS Provided VIS Publication Date 08/14/23 Single Vaccine 21 Eligibility Eligibility Date Funding Source Not [facility] Eligible 08/14/23 Private Results Reviewed Results Reviewed: Laboratory Tests 08/08/23 06:11 Sodium 139 Potassium 4.3 Creatinine 0.81 Estimated GFR > 60 Fasting Glucose 97 Calcium 10.1 AST 26 ALT 29 Triglycerides 142 Cholesterol 154 LDL Cholesterol, Calc 82 HDL Cholesterol 44 Assessment and Plan Assessment & Plan (1) Benign essential hypertension: Code(s): I10 - Essential (primary) hypertension Plan: Reinforced low-sodium diet - goal is systolic BP of 120 mm or less due to his thoracic aneurysm/aortic dilation Continue Metoprolol ER 100 mg QD and Amlodipine 5 mg QD He is reminded to continue monitoring his blood pressure regularly (2) Pure hypercholesterolemia: Code(s): E78.00 - Pure hypercholesterolemia, unspecified Plan: Results of his labs done last week reviewed and discussed with patient Reinforced low cholesterol diet Continue Atorvastatin 40 mg QD Will recheck his labs and fasting lipids in 4 months for follow up (3) Impaired fasting glucose: Code(s): R73.01 - Impaired fasting glucose Plan: HgbA1c was normal at 5.7% when previously checked; was at 6.1% back in February 2022 His FBS was normal at 97 mg/dl on his labs done last week Reinforced low calorie diet /exercise as tolerated (4) Thoracic aortic aneurysm: Comment: 4.4 cm by echo 05/2021 Code(s): I71.2 - Thoracic aortic aneurysm, without rupture Qualifiers: Thoracic aorta location: unspecified Presence of rupture: without rupture Qualified Code(s): I71.20 - Thoracic aortic aneurysm, without rupture, unspecified Plan: Thoracic aortic aneurysm was at 4.4 cm on his repeat echocardiogram done a few weeks ago on 07/24/2023; was previously at 4.6 cm on his echocardiogram done last year on 06/28/2022 and at 4.4 cm on US in May 2021 - is considered mostly unchanged Continue with conservative follow-up and monitoring with?annual echocardiogram; follow up with cardiology as scheduled Emphasized again aggressive blood pressure control, with systolic BP of 120 mm or less as goal ot help slow down progression Reminded again as well to avoid strenuous isometric exercise and to seek emergency care if he develops sudden chest pains at any time (5) Ocular hypertension: Code(s): H40.059 - Ocular hypertension, unspecified eye Qualifiers: Laterality: unspecified laterality Qualified Code(s): H40.059 - Ocular hypertension, unspecified eye Plan: Follow up with ophthalmology as scheduled (6) Osteoarthritis of left foot: Code(s): M19.072 - Primary osteoarthritis, left ankle and foot Qualifiers: Osteoarthritis type: primary Qualified Code(s): M19.072 - Primary osteoarthritis, left ankle and foot Plan: Symptoms have remained adequately controlled lately - takes OTC Acetaminophen PRN He is reminded to avoid OTC NSAIDs as much as possible (7) Anxiety: Code(s): F41.9 - Anxiety disorder, unspecified Plan: Continue Lorazepam 0.5 mg twice a day as needed (8) Depression: Code(s): F32.9 - Major depressive disorder, single episode, unspecified Qualifiers: Depression Type: major depressive disorder Major depression recurrence: recurrent Active/Remission status: currently active Major depression episode severity: unspecified Qualified Code(s): F33.9 - Major depressive disorder, recurrent, unspecified Plan: Follow up with Psychiatry as scheduled (9) Obesity (BMI 30-39.9): Code(s): E66.9 - Obesity, unspecified Plan: Reinforced diet/exercise as tolerated/ lose weight Plan Flu vaccine given today, per request Follow up in 4 months Orders: Orders Complete Blood Count Auto Diff 4 Months I10 - Essential (primary) hypertension Comprehensive Divide. Panel Fast 4 Months E78.00 - Pure hypercholesterolemia, unspecified Lipid Panel 4 Months E78.00 - Pure hypercholesterolemia, unspecified Hemoglobin A1c 4 Months R73.01 - Impaired fasting glucose TSH reflex Free T4 4 Months E78.00 - Pure hypercholesterolemia, unspecified Influenza [id number] Immunization Today Z23 - Encounter for immunization UA CC w/rflx Micro + Cult 4 Months R30.0 - Dysuria Vitamin D 25-OH Total 4 Months E55.9 - Vitamin D deficiency, unspecified Coding Level of Care Code Est Pt Level 4 (04920) Diagnoses Benign essential hypertension I10 Pure hypercholesterolemia E78.00 Impaired fasting glucose R73.01 Thoracic aortic aneurysm without rupture, unspecified part I71.20 Thoracic aorta location: unspecified Presence of rupture: without rupture Ocular hypertension, unspecified laterality H40.059 Laterality: unspecified laterality Primary osteoarthritis of left foot M19.072 Osteoarthritis type: primary Anxiety F41.9 Episode of recurrent major depressive disorder, unspecified depression episode severity F33.9 Depression Type: major depressive disorder Major depression recurrence: recurrent Active/Remission status: currently active Major depression episode severity: unspecified Obesity (BMI 30-39.9) E66.9
[2023-08-14 10:49] VITALS: BP 122/84; PULSE 75; O2SAT 95; BMI 33.1
== END 2023-08-14 11:25 | disposition home or self-care (01) ==
PROVIDERS: PCP Internal Medicine; Visit Provider Internal Medicine
DX: I10 Essential (primary) hypertension (principal); I71.20 Thoracic aortic aneurysm, without rupture, unspecified; F33.9 Major depressive disorder, recurrent, unspecified; E78.00 Pure hypercholesterolemia, unspecified; Z23 Encounter for immunization; R73.01 Impaired fasting glucose; H40.059 Ocular hypertension, unspecified eye; M19.072 Primary osteoarthritis, left ankle and foot; F41.9 Anxiety disorder, unspecified; E66.9 Obesity, unspecified
CPT/HCPCS: 90471; 90686; 99214

== ENCOUNTER 2024-02-13 15:42 | Outpatient (AMB) | payer MEDICARE, MEDICAID, SELFPAY ==
--- NOTE | 2024-02-13 15:55 | A.OFFPC_ITS ---
Vital Signs 02/13/24 15:58 Height 6 ft Weight 250 lb BMI 33.9 BP 130/74 Blood Pressure Location Lt brachial Position Sitting Pulse 89 Pulse Source Pulse Oximeter Pulse Oximetry (%) 95 Oxygen Delivery Method Room Air Intake Visit Reasons: possible arthritis Intake Note: Patient is here to follow up on possible arthritis in left hand. Cone Classifier Tender Required: No Director Corporate Security: Not Required per policy Accompanied by: Self / Same As Patient Allergies Lisinopril Adverse Reaction (Intermediate, Uncoded 02/14/24 03:36) diarrhea Medication List - Last Reconciled 02/14/24 by Janak Garcia MD amlodipine 5 mg PO DAILY 90 days aspirin (Adult Aspirin Regimen) 81 mg PO DAILY atorvastatin 40 mg PO BEDTIME 90 days ezetimibe 10 mg PO DAILY metoprolol succinate ER 100 mg PO DAILY Tobacco use date assessed: 02/13/24 Fall risk assessment: No Falls in past year Last assessed Fall Risk: 02/13/24 Dental Screening Dental Screen Date: 02/13/24 Did you have a dental visit in the last 12 months?: Yes Did you have a dental problem in the last 6 months where you did not have access to dental care?: No Was dental information given to patient?: Patient has dentist HPI possible arthritis HPI Details Patient comes in today complaining of recurrent swelling and (+) pain of both hands lately States that he would often wake up in the morning with both of his hands already swollen and slightly sore and that his left hand feels a little worse than the right hand Adds that his left middle finger has also been 'locking up' on him on and off for the past couple of weeks States that the swelling would gradually subside after a while but often does not go disappear completely Reports only mild pain in his hands and fingers and states that once the swelling subsides, he usually does not have any problems using his hands to do anything unless his left milddle finger locks up on him He denies any other unusual joint pains or issues He denies any recent cough/cold symptoms Denies any fever, headaches or dizziness Denies any chest pains, no SOB No nausea/vomiting, no abdominal pain No change in bowel habits noted PFSH Medical History (Updated 02/13/24 @ 16:42 by Janak Garcia MD) Pure hypercholesterolemia Benign essential hypertension Thoracic aortic aneurysm Obesity (BMI 30-39.9) Depression Anxiety History of alcohol use Osteoarthritis of left foot Malignant melanoma of face Ocular hypertension Impaired fasting glucose Palpitations Hypertension Hyperlipidemia Surgical History History of tooth extraction History of melanoma excision Status post Mohs surgery (~07/09/17) Family History Father Hypertension Stroke Mother Hypertension CVD (cardiovascular disease) Son No problems noted. Social History Housing: House Alcohol intake: former Patient Tobacco Use Status: Former Tobacco user e-Cigarette/Vaping Use: Never Used Second Hand Smoke Exposure: Yes service: No Current occupational status: retired Cognitive needs: No Hearing needs: Yes (hearing aide) Vision needs: No Questionnaire PHQ-9 Over the last 2 weeks, how often have you been bothered by any of the following problems? 1. Little interest or pleasure in doing things: not at all 2. Feeling down, depressed, or hopeless: not at all 3. Trouble falling or staying asleep, or sleeping too much: not at all 4. Feeling tired or having little energy: not at all 5. Poor appetite or overeating: not at all 6. Feeling bad about yourself - or that you are a failure or have let yourself or your family down: not at all 7. Trouble concentrating on things, such as reading the newspaper or watching television: not at all 8. Moving or speaking so slowly that other people could have noticed. Or the opposite - being so fidgety or restless that you have been moving around a lot more than usual: not at all 9. Thoughts that you would be better off or of hurting yourself in some way: not at all Total score: 0 Depression Screening Interpretation: Negative Depression Screening Done: Yes 88182 - PHQ-9 Billing: Yes Source: Developed by Drs. Julio Grubbs, Rafaela Clarie, Cedrick Beckford and colleagues, with an educational marie from [employer]. Thrive Questionnaire Date Thrive assessed: 02/13/24 I am a: Patient What is your living situation today?: I have a steady place to live Within the past 12 months, did the food you bought not last and you didn't have the money to get more?: Never true Within the past 12 months, did you worry whether your food would run out before you got money to buy more?: Never true Do you have trouble paying for medicines?: No Do you have trouble getting transportation to medical appointments?: No Do you have trouble paying your heating and electricity bill?: No Do you have trouble taking care of your child, family member or friend?: No Do you have trouble with day-to-day activities such as bathing, preparing meals, shopping, managing finances, etc.?: No Are you currently unemployed and looking for a job?: No Are you interested in more education?: No Currently or been in a relationship where the following occur: no concerns reported THRIVE Score: 0 AUDIT C Alcohol Use Questionnaire (AUDIT-C) 1. How often do you have a drink containing alcohol?: Never 3. How often do you have six or more drinks on one occasion?: Never Total Score: 0 Score Reviewed/Action Taken: Yes CARLA-7 AMB Questionnaire CARLA-7 Date CARLA - 7 assessed: 02/13/24 Feeling nervous, anxious, or on edge: 0 = Not at all Not being able to stop or control worryin = Not at all Worrying too much about different things: 0 = Not at all Trouble relaxin = Not at all Being so restless that it is hard to sit still: 0 = Not at all Becoming easily annoyed or irritable: 0 = Not at all Feeling afraid as if something awful might happen: 0 = Not at all Total CARLA-7 score (0-4 normal; 5-9 mild; 10-14 moderate; 15-21 severe): 0 Source: Developed by Drs. Julio Grubbs, Rafaela Claire, Cedrick Beckford and colleagues, with an educational marie from [employer]. Review of Systems Const Denies chills, Denies fatigue, Denies fever(s) and Denies headache(s) ENT Denies dysphagia, Denies dizziness, Denies otalgia, Denies headache(s), Denies odynophagia and Denies sore throat Card Denies chest pain, Denies palpitations and Denies dyspnea Resp Denies cough and Denies dyspnea GI Denies abdominal pain, Denies constipation, Denies dysphagia, Denies heartburn, Denies diarrhea, Denies nausea, Denies odynophagia and Denies vomiting Denies dysuria, Denies nocturia and Denies urinary frequency Musc Details: recurrent swelling and some pain in both hands, L>R; left finger 'locking up' on him on and off x couple of weeks Reports as per HPI and Reports arthralgias (on and off, relieved with OTC acet aminophen) Skin/Breast Denies rash Neuro Denies dizziness and Denies headache(s) Endo Denies fatigue and Denies palpitations Physical exam (Primary Care) Vital Signs: Last Vital Signs Pulse 89 02/13/24 15:58 BP 130/74 02/13/24 15:58 Pulse Ox 95 02/13/24 15:58 Oxygen Delivery Method Room Air 02/13/24 15:58 BMI result Body Mass Index 33.9 Tobacco/Smoking Status: Tobacco use Status Tobacco use date assessed 02/13/24 02/13/24 16:03 Patient Tobacco Use Status Former Tobacco user 02/13/24 16:03 e-Cigarette/Vaping Use Never Used 02/13/24 16:03 PHQ-9: PHQ-9 Score PHQ-9: Total score 0 02/13/24 19:04 Depression Screening Interpretation: Negative Thrive Assessment: Date of Thrive Assessment Date Thrive assessed 02/13/24 02/13/24 16:03 Currently or been in a relationship where the following occur: no concerns reported Const General: no acute distress and alert HENMT Throat: Yes posterior oropharynx normal and Yes tonsils normal (no TP congestion noted) Neck Neck: Yes no lymphadenopathy and Yes supple Resp Auscultation: clear to auscultation bilaterally, no rales and no wheezes Cardio Rate: regular rate Rhythm: regular rhythm Heart sounds: no murmurs GI Palpation (GI): Soft to palpation and nontender Auscultation: normal bowel sounds Extrem Other: (+) mild edema noted on both hands, with a few noticeable prominence of the IP joints of a few fingers on both hands General: No pedal edema Assessment and Plan Assessment & Plan (1) Bilateral hand pain: Code(s): M79.641 - Pain in right hand; M79.642 - Pain in left hand Plan: X-rays of his hands done last year in February 2023 revealed (+) mild arthritis changes in both hands Will send him for repeat x-rays of the hands [facility] for further evaluation (2) Swelling of both hands: Code(s): M79.89 - Other specified soft tissue disorders Plan: Will check some additional labs (JASBIR, ESR. CRP and rheumatoid factor), which we will add to his upcoming labs in a few weeks, to look into possible causes of this (3) Trigger finger, left middle finger: Code(s): M65.332 - Trigger finger, left middle finger Plan: Will refer him to orthopedics for further evaluation and management Plan Follow up as scheduled in March 2024 Orders: Orders JASBIR Reflex Titer and Pattern 03/15/24 M79.641 - Pain in right hand, M79.642 - Pain in left hand, M79.89 - Other specified soft tissue disorders C Reactive Protein 03/15/24 M79.641 - Pain in right hand, M79.642 - Pain in left hand, M79.89 - Other specified soft tissue disorders Erythrocyte Sedimentation Rate 03/15/24 M79.641 - Pain in right hand, M79.642 - Pain in left hand, M79.89 - Other specified soft tissue disorders XR hand LT min 3V 02/13/24 M79.641 - Pain in right hand, M79.642 - Pain in left hand, M79.89 - Other specified soft tissue disorders XR hand RT min 3V 02/13/24 M79.641 - Pain in right hand, M79.642 - Pain in left hand, M79.89 - Other specified soft tissue disorders Rheumatoid Factor 03/15/24 M79.641 - Pain in right hand, M79.642 - Pain in left hand, M79.89 - Other specified soft tissue disorders Referrals Orthopedics Referral M65.332 - Trigger finger, left middle finger, M79.641 - Pain in right hand, M79.642 - Pain in left hand, M79.89 - Other specified soft tissue disorders Coding Level of Care Code Est Pt Level 3 (84630) Diagnoses Bilateral hand pain M79.641; M79.642 Swelling of both hands M79.89 Trigger finger, left middle finger M65.332
[2024-02-13 15:58] VITALS: BP 130/74; PULSE 89; O2SAT 95; BMI 33.9
== END 2024-02-13 16:44 | disposition home or self-care (01) ==
PROVIDERS: PCP Internal Medicine; Visit Provider Internal Medicine
DX: M79.641 Pain in right hand (principal); M79.642 Pain in left hand; M79.89 Other specified soft tissue disorders; M65.332 Trigger finger, left middle finger
CPT/HCPCS: 99213

== ENCOUNTER 2024-02-14 10:32 | Outpatient (REF) | payer MEDICARE, MEDICAID, SELFPAY ==
--- NOTE | ~2024-02-14 | XR_ITS ---
EXAM: X-RAYS BILATERAL HANDS CLINICAL INFORMATION: Patient stated bilateral hands pain, no injury. COMPARISON: None. TECHNIQUE: 3 views of each hand. FINDINGS: Right hand: Radiopaque marker placed by technologist indicate area of concern indicated by the patient at distal aspect of right second digit. Moderate degenerative changes in the first carpometacarpal and metacarpophalangeal joints with moderate joint space narrowing. The bones are diffusely demineralized. Bowing deformity of the right fifth metacarpal also present on exam of 03/14/2013. Moderate degenerative changes in the first metacarpophalangeal joint with joint space narrowing and hypertrophic change. Minimal degenerative changes in DIP joints. Left hand: Radiopaque marker placed to indicate the area of concern as indicated by the patient at the distal aspect of the left third digit. Ulnar minus variance. Moderate degenerative changes in the first carpometacarpal and metacarpophalangeal joints. Advanced degenerative changes in the second metacarpophalangeal joint with loss of the joint space and hypertrophic change. Minimal degenerative changes in the DIP joints. XR/XR hand LT min 3V IMPRESSION: 1. Moderate degenerative changes in the first carpometacarpal and metacarpophalangeal joints bilaterally. 2. Advanced degenerative changes in the left second metacarpophalangeal joint greater than right. 3. Bowing deformity of the right fifth metacarpal also present on exam of 03/14/2013.
--- NOTE | ~2024-02-14 | XR_ITS ---
EXAM: X-RAYS BILATERAL HANDS CLINICAL INFORMATION: Patient stated bilateral hands pain, no injury. COMPARISON: None. TECHNIQUE: 3 views of each hand. FINDINGS: Right hand: Radiopaque marker placed by technologist indicate area of concern indicated by the patient at distal aspect of right second digit. Moderate degenerative changes in the first carpometacarpal and metacarpophalangeal joints with moderate joint space narrowing. The bones are diffusely demineralized. Bowing deformity of the right fifth metacarpal also present on exam of 03/14/2013. Moderate degenerative changes in the first metacarpophalangeal joint with joint space narrowing and hypertrophic change. Minimal degenerative changes in DIP joints. Left hand: Radiopaque marker placed to indicate the area of concern as indicated by the patient at the distal aspect of the left third digit. Ulnar minus variance. Moderate degenerative changes in the first carpometacarpal and metacarpophalangeal joints. Advanced degenerative changes in the second metacarpophalangeal joint with loss of the joint space and hypertrophic change. Minimal degenerative changes in the DIP joints. XR/XR hand RT min 3V IMPRESSION: 1. Moderate degenerative changes in the first carpometacarpal and metacarpophalangeal joints bilaterally. 2. Advanced degenerative changes in the left second metacarpophalangeal joint greater than right. 3. Bowing deformity of the right fifth metacarpal also present on exam of 03/14/2013.
== END 2024-02-14 10:33 | disposition home or self-care (01) ==
LOC: HO.XRAY 10:32
PROVIDERS: Visit Provider Internal Medicine
DX: M79.641 Pain in right hand (principal); M79.642 Pain in left hand; M79.89 Other specified soft tissue disorders
CPT/HCPCS: 73130

== ENCOUNTER 2024-02-27 14:04 | Outpatient (AMB) | payer MEDICARE, MEDICAID, SELFPAY ==
--- NOTE | 2024-02-27 14:07 | MHC.OFFVIS ---
Vital Signs 02/27/24 14:12 Height 6 ft Weight 250 lb BMI 33.9 Intake Visit Reasons: Pain in right hand, Pain in left hand Intake Note: Bib a 68 year old right hand dominant male who presents today for an evaluation of bilateral hand pain. Patient reports pain has been present for a couple of months. States his left hand is worse as well as locking and catching in his middle finger. He has stiffness in his fingers and frequently drops items. Denies injury. Hx of arthritis. Denies numbness and tingling. Denies injury. Finds some relief with Aleve. Allergies Lisinopril Adverse Reaction (Intermediate, Uncoded 02/27/24 14:24) diarrhea HPI HPI Pain in right hand, Pain in left hand: Details: 68-year-old gentleman presents to the office today for left hand pain. He states that left middle finger has been locking for the last couple of weeks and limiting his daily activities. He has had no treatment to date. [facility], LAT[facility] Medical History (Updated 02/13/24 @ 16:42 by Janak Garcia MD) Pure hypercholesterolemia Benign essential hypertension Thoracic aortic aneurysm Obesity (BMI 30-39.9) Depression Anxiety History of alcohol use Osteoarthritis of left foot Malignant melanoma of face Ocular hypertension Impaired fasting glucose Palpitations Hypertension Hyperlipidemia Surgical History History of tooth extraction History of melanoma excision Status post Mohs surgery (~07/09/17) Family History Father Hypertension Stroke Mother Hypertension CVD (cardiovascular disease) Son No problems noted. Social History (Updated 02/27/24 @ 14:25 by JULES Restrepo) Housing: House Alcohol intake: former Patient Tobacco Use Status: Former Tobacco user e-Cigarette/Vaping Use: Never Used Second Hand Smoke Exposure: Yes service: No Current occupational status: retired Current occupation: right hand dominant Cognitive needs: No Hearing needs: Yes (hearing aide) Vision needs: No Review of Systems Const All systems reviewed & are unremarkable except as noted in HPI and below Physical Exam Vital Signs: BMI result Body Mass Index 33.9 Const General: cooperative, healthy appearing, comfortable, no acute distress, well developed and alert Orientation/consciousness: patient oriented x3 HEENT Head: Yes normal to inspection, Yes normocephalic and Yes atraumatic Eyes General: appearance normal, both eyes and all related structures Neck Neck: Yes normal visual inspection and Yes no lymphadenopathy Resp Effort & Inspection: normal respiratory effort and able to speak in complete sentences Cardio Rate: regular rate Peripheral pulses: Peripheral pulses 2+ throughout GI Inspection: Yes normal to inspection Palpation (GI): Soft to palpation Skin General skin exam: no rashes or lesions noted Neuro General: patient oriented x3 Extrem Other: left middle finger Tender nodule along the A1 fatou with active catching and locking. NVI. Psych Appearance: grossly normal Mental Status: mental status grossly normal Assessment & Plan Assessment & Plan (1) Trigger finger, left middle finger: Code(s): M65.332 - Trigger finger, left middle finger Category: Medical Plan: We discussed options which include conservative vs operative treatment. Since the patient has been symptomatic for several months and it is impacting their daily life, the decision was made to undergo Trigger release. We discussed risk, benefits and alternatives. Risk including but not limited to infection, stiffness, ongoing trigger or catching. He does understand all this and would like to proceed with left middle finger trigger release with Dr Bills. He will be booked accordingly. Coding Level of Care Code New Pt Level 4 (32576) Diagnoses Trigger finger, left middle finger M65.332
[2024-02-27 14:12] VITALS: BMI 33.9
== END 2024-02-27 15:02 | disposition home or self-care (01) ==
PROVIDERS: PCP Internal Medicine; Visit Provider Physician Assistant
DX: M65.332 Trigger finger, left middle finger (principal)
CPT/HCPCS: 99204

== ENCOUNTER → 2024-02-27 14:04 | Outpatient (BNVA) | payer MEDICARE, MEDICAID, SELFPAY | PROVIDERS: PCP Internal Medicine; Visit Provider Physician Assistant | DX: M79.641 Pain in right hand (principal); M79.642 Pain in left hand; M79.89 Other specified soft tissue disorders; M65.332 Trigger finger, left middle finger | CPT/HCPCS: 99202 ==

== ENCOUNTER 2024-03-21 06:59 | Outpatient (REF) | payer MEDICARE, MEDICAID, SELFPAY ==
[2024-03-21 07:13] LABS: MANUAL DIFF FLAG NO
[2024-03-21 07:39] LABS: Basophils Absolute Auto 0.1 X10*3/uL (0.0-0.2); Eosinophils Absolute Auto 0.3 X10*3/uL (0.0-0.4); Eosinophils Percent Auto 3.7 % (0-4); Hematocrit 41.7 % (42.0-52.0); Hemoglobin 14.2 g/dl (14.0-18.0); Imm Gran Abs Auto 0.05 X10*3/uL (0.00-0.03); Imm Gran Pct Auto 0.6 % (0.0-0.4); Lymphocytes Absolute Auto 2.7 X10*3/uL (1.2-4.9); Lymphocytes Percent Auto 31.7 % (20-40); Mean Corpuscular HGB Conc 34.1 g/dl (31.0-36.0); Mean Corpuscular Hemoglobin 31.2 pg (27.0-33.0); Mean Corpuscular Volume 91.6 fL (80.0-98.0); Mean Platelet Volume 10.1 fL (9.4-12.4); Monocytes Absolute Auto 0.7 X10*3/uL (0.1-1.2); Monocytes Percent Auto 8.6 % (2-11); Neutrophils Absolute Auto 4.6 x10*3/uL (2.0-8.3); Neutrophils Percent Auto 54.4 % (45-73); Platelet Count 280 X10*3/uL (160-400); Red Blood Count 4.55 X10*6/uL (4.60-5.80); Red Cell Distribution Width 12.7 % (11.0-16.0); White Blood Count 8.4 X10*3/uL (4.8-10.8)
[2024-03-21 07:49] LABS: Estimated Average Glucose 123 mg/dL; Hemoglobin A1c % 5.9 % (<6.0)
[2024-03-21 08:00] LABS: Rheumatoid Factor < 13.0 IU/mL (<15.0)
[2024-03-21 08:13] LABS: Alanine Aminotransferase 20 U/L (0-40); Albumin Level 4.5 g/dL (3.5-5.0); Alkaline Phosphatase 84 U/L (39-117); Anion Gap 12 (12-20); Aspartate Amino Transferase 20 U/L (5-37); Bilirubin Total 0.5 mg/dL (0.0-1.0); Blood Urea Nitrogen 13 mg/dL (9-16); C Reactive Protein 0.18 mg/dL (< or = 0.50); Carbon Dioxide 25 mmol/L (22-29); Chloride 106 mmol/L (96-108); Cholesterol 132 mg/dL (<200); Estimated Glomerular Filt Rate > 60; Glucose Fasting 96 mg/dL (60-99); HDL Cholesterol 36 mg/dL (>40); LDL Cholesterol Calculated 71 mg/dL (<100); Sodium 139 mmol/L (135-145); Total Protein 7.5 g/dL (6.5-8.0); Triglycerides 127 mg/dL (<150)
[2024-03-21 08:18] LABS: Appearance Urine Clear; Color Urine Yellow; Glucose Urine UA Negative (Negative); Leukocyte Esterase Urine Negative (Negative); Nitrite Urine Negative (Negative); PH 6.5 (5.0-9.0); Specific Gravity - Urine 1.015 (1.005-1.025); Urine Blood Negative (Negative); Urine Ketones Negative (Negative); Urine Protein Negative (Neg-Trace)
[2024-03-21 08:19] LABS: TSH reflex Free T4 0.81 uIU/mL (0.32-4.0); Vitamin D 25-OH Total 35.9 ng/mL (>30)
[2024-03-21 08:29] LABS: Erythrocyte Sedimentation Rate 14 MM/HR (0-15)
[2024-03-25 13:13] LABS: Anti Nuclear Antibody Screen NEGATIVE (NEGATIVE)
== END 2024-03-21 07:00 | disposition home or self-care (01) ==
LOC: HO.LAB 06:59
PROVIDERS: PCP Internal Medicine; Visit Provider Internal Medicine
DX: I10 Essential (primary) hypertension (principal); R73.01 Impaired fasting glucose; M79.641 Pain in right hand; M79.642 Pain in left hand; M79.89 Other specified soft tissue disorders; E55.9 Vitamin D deficiency, unspecified; E78.00 Pure hypercholesterolemia, unspecified; R30.0 Dysuria
CPT/HCPCS: 36415; 80053; 80061; 81003; 82306; 83036; 84443; 85025; 85652; 86038; 86140; 86431

== ENCOUNTER 2024-03-26 09:37 | Outpatient (AMB) | payer MEDICARE, MEDICAID, SELFPAY ==
[2024-03-26 09:40] VITALS: BP 148/90; PULSE 74; O2SAT 93; BMI 34.2
--- NOTE | 2024-03-26 09:40 | MHC.PC.OV ---
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: No Allergies Lisinopril Adverse Reaction (Intermediate, Uncoded 03/26/24 10:50) diarrhea Medication List - Last Reconciled 03/26/24 by Janak Garcia MD amlodipine 5 mg PO DAILY 90 days aspirin (Adult Aspirin Regimen) 81 mg PO DAILY atorvastatin 40 mg PO BEDTIME 90 days ezetimibe 10 mg PO DAILY metoprolol succinate ER 100 mg PO DAILY Tobacco use date assessed: 03/26/24 Fall risk assessment: No Falls in past year Last assessed Fall Risk: 03/26/24 Dental Screening Dental Screen Date: 02/13/24 Did you have a dental visit in the last 12 months?: Yes Did you have a dental problem in the last 6 months where you did not have access to dental care?: No Was dental information given to patient?: Patient has dentist HPI Follow up HTN HPI Details Patient comes in today for his follow up visit States that he has been experiencing a recurrent cough for the past couple of weeks now Relates (+) nasal and chest congestion at times and states that his coughing has gone on long enough now that he thinks he presently has a respiratory infection and may need some Abx Rx to help clear up his infection He denies any fever or sore throat and that he feels okay otherwise Denies any headaches but he has reportedly been experiencing occasional dizziness lately, usually when he has increased bouts of coughing Denies any chest pains, no SOB No nausea/vomiting, no abdominal pain No change in bowel habits noted Needs his Atorvastatin Rx refilled today Had his follow up labs done a few days ago - to discuss his results He was also seen recently by orthopedics for his trigger finger (left hand) and is now tentatively scheduled for surgery in July 2024 [facility] Medical History (Updated 03/26/24 @ 11:17 by Janak Garcia MD) Allergic rhinitis Pure hypercholesterolemia Benign essential hypertension Thoracic aortic aneurysm Obesity (BMI 30-39.9) Depression Anxiety History of alcohol use Osteoarthritis of left foot Malignant melanoma of face Ocular hypertension Impaired fasting glucose Palpitations Hypertension Hyperlipidemia Surgical History History of tooth extraction History of melanoma excision Status post Mohs surgery (~07/09/17) Family History Father Hypertension Stroke Mother Hypertension CVD (cardiovascular disease) Son No problems noted. Social History Housing: House Alcohol intake: former Patient Tobacco Use Status: Former Tobacco user e-Cigarette/Vaping Use: Never Used Second Hand Smoke Exposure: Yes service: No Current occupational status: retired Current occupation: right hand dominant Cognitive needs: No Hearing needs: Yes (hearing aide) Vision needs: No Questionnaire Thrive Questionnaire Date Thrive assessed: 02/13/24 I am a: Patient What is your living situation today?: I have a steady place to live Within the past 12 months, did the food you bought not last and you didn't have the money to get more?: Never true Within the past 12 months, did you worry whether your food would run out before you got money to buy more?: Never true Do you have trouble paying for medicines?: No Do you have trouble getting transportation to medical appointments?: No Do you have trouble paying your heating and electricity bill?: No Do you have trouble taking care of your child, family member or friend?: No Do you have trouble with day-to-day activities such as bathing, preparing meals, shopping, managing finances, etc.?: No Are you currently unemployed and looking for a job?: No Are you interested in more education?: No Currently or been in a relationship where the following occur: no concerns reported THRIVE Score: 0 AUDIT C Alcohol Use Questionnaire (AUDIT-C) 1. How often do you have a drink containing alcohol?: Never 3. How often do you have six or more drinks on one occasion?: Never Total Score: 0 Score Reviewed/Action Taken: Yes CARLA-7 AMB Questionnaire CARLA-7 Date CARLA - 7 assessed: 03/26/24 Feeling nervous, anxious, or on edge: 0 = Not at all Not being able to stop or control worryin = Not at all Worrying too much about different things: 0 = Not at all Trouble relaxin = Not at all Being so restless that it is hard to sit still: 0 = Not at all Becoming easily annoyed or irritable: 0 = Not at all Feeling afraid as if something awful might happen: 0 = Not at all Total CARLA-7 score (0-4 normal; 5-9 mild; 10-14 moderate; 15-21 severe): 0 Source: Developed by Drs. Julio Grubbs, Rafaela Claire, Cedrick Beckford and colleagues, with an educational marie from [employer]. CARLA-7 Assessment Billing CARLA-7 Assessment Tool: CARLA-7 Assessment 30175 Review of Systems Const Denies chills, Denies fatigue, Denies fever(s) and Denies headache(s) ENT Denies dysphagia, Reports dizziness (on and off lately, usually with increased fits of coughing), Denies otalgia, Denies headache(s), Reports nasal congestion (on and off), Reports nasal discharge, Denies odynophagia and Denies sore throat Card Denies chest pain, Denies palpitations and Denies dyspnea Resp Reports chest congestion (at times), Reports cough (recurrent), Denies excessive phlegm production, Denies dyspnea and Denies wheezing GI Denies abdominal pain, Denies constipation, Denies dysphagia, Denies heartburn, Denies diarrhea, Denies nausea, Denies odynophagia and Denies vomiting Denies dysuria, Denies nocturia and Denies urinary frequency Musc Reports as per HPI and Reports arthralgias (on and off, relieved with OTC acetaminophen) Skin/Breast Denies rash Neuro Reports dizziness (on and off lately, usually with increased fits of coughing) and Denies headache(s) Endo Denies fatigue and Denies palpitations Aller/Immun Denies wheezing Physical exam (Primary Care) Vital Signs: Last Vital Signs Pulse 74 03/26/24 09:40 BP 148/90 H 03/26/24 09:40 Pulse Ox 93 03/26/24 09:40 Oxygen Delivery Method Room Air 03/26/24 09:40 BMI result Body Mass Index 34.2 Tobacco/Smoking Status: Tobacco use Status Tobacco use date assessed 03/26/24 03/26/24 09:41 Patient Tobacco Use Status Former Tobacco user 03/26/24 09:41 e-Cigarette/Vaping Use Never Used 03/26/24 09:41 Thrive Assessment: Date of Thrive Assessment Date Thrive assessed 02/13/24 03/26/24 09:41 Currently or been in a relationship where the following occur: no concerns reported Const General: no acute distress and alert HENMT Ears: TM's normal bilaterally and EAC's normal Throat: Yes posterior oropharynx normal and Yes tonsils normal (no TP congestion noted) Neck Neck: Yes no lymphadenopathy and Yes supple Thyroid: Thyroid normal Resp Auscultation: clear to auscultation bilaterally, no rales and no wheezes Cardio Rate: regular rate Rhythm: regular rhythm Heart sounds: no murmurs GI Palpation (GI): Soft to palpation and nontender Auscultation: normal bowel sounds General: Yes no CVA tenderness Back/Spine/Pelvis Back: no CVA tenderness Skin Rashes: no rashes Extrem Other: (+) few noticeable prominence of the IP joints on a few fingers bilaterally General: Yes no clubbing, cyanosis or edema and No pedal edema Results Reviewed Results Reviewed: Laboratory Tests 03/21/24 03/21/24 07:09 07:11 WBC 8.4 Hgb 14.2 Hct 41.7 L Plt Count 280 ESR 14 Sodium 139 Potassium 4.0 Creatinine 0.81 Estimated GFR > 60 Fasting Glucose 96 Hemoglobin A1c % 5.9 Calcium 10.0 AST 20 ALT 20 C-Reactive Protein 0.18 Triglycerides 127 Cholesterol 132 LDL Cholesterol, Calc 71 HDL Cholesterol 36 L 25-OH Vitamin D Total 35.9 TSH 0.81 Ur Specific [place] 1.015 Urine Protein Negative Urine Glucose (UA) Negative Urine Blood Negative Urine Nitrite Negative Ur Leukocyte Esterase Negative Rheumatoid Factor < 13.0 JASBIR Screen NEGATIVE Assessment and Plan Assessment & Plan (1) Pure hypercholesterolemia: Code(s): E78.00 - Pure hypercholesterolemia, unspecified Plan: Results of his labs done a few days ago reviewed and discussed with patient Reinforced low cholesterol diet Continue Atorvastatin 40 mg QD Will recheck his labs and fasting lipids in 4 months for follow up (2) Benign essential hypertension: Code(s): I10 - Essential (primary) hypertension Plan: Reinforced low-sodium diet - goal is systolic BP of 120 mm or less due to his thoracic aneurysm/aortic dilation Continue Metoprolol ER 100 mg QD and Amlodipine 5 mg QD He is reminded to continue monitoring his blood pressure regularly (3) Impaired fasting glucose: Code(s): R73.01 - Impaired fasting glucose Plan: FBS was normal at 96 mg/dl and HgbA1c at 5.9% on his recent labs - his HgbA1c was normal at 5.7% previously Reinforced low calorie diet /exercise as tolerated (4) Thoracic aortic aneurysm: Comment: 4.4 cm by echo 05/2021 Code(s): I71.2 - Thoracic aortic aneurysm, without rupture Qualifiers: Thoracic aorta location: unspecified Presence of rupture: without rupture Qualified Code(s): I71.20 - Thoracic aortic aneurysm, without rupture, unspecified Plan: Thoracic aortic aneurysm was at 4.4 cm on his repeat echocardiogram done a few months ago on 07/24/2023; was previously at 4.6 cm on his echocardiogram done on 06/28/2022 and at 4.4 cm on US in May 2021 - is considered mostly unchanged Continue with conservative follow-up and monitoring with?annual echocardiogram; follow up with cardiology as scheduled Emphasized again aggressive blood pressure control, with systolic BP of 120 mm or less as goal ot help slow down progression He is reminded again as well to avoid strenuous isometric exercise and to seek emergency care if he develops sudden chest pains at any time (5) Ocular hypertension: Code(s): H40.059 - Ocular hypertension, unspecified eye Qualifiers: Laterality: unspecified laterality Qualified Code(s): H40.059 - Ocular hypertension, unspecified eye Plan: Follow up with ophthalmology as scheduled (6) Allergic rhinitis: Code(s): J30.9 - Allergic rhinitis, unspecified Qualifiers: Allergic rhinitis trigger: pollen Allergic rhinitis seasonality: unspecified Qualified Code(s): J30.1 - Allergic rhinitis due to pollen Plan: He is reassured that he currently does not appear to have any respiratory infection, based on his symptoms and exam today, and that his recurrent cough and related symptoms are mostly due to allergies Will start him on Loratadine 10 mg QD PRN He is advised to call if he feels that his symptoms are getting worse despite taking Rx for his allergies (7) Osteoarthritis of left foot: Code(s): M19.072 - Primary osteoarthritis, left ankle and foot Qualifiers: Osteoarthritis type: primary Qualified Code(s): M19.072 - Primary osteoarthritis, left ankle and foot Plan: His foot symptoms have remained adequately controlled lately - takes OTC Acetaminophen PRN He is reminded to avoid OTC NSAIDs as much as possible (8) Trigger finger, left middle finger: Code(s): M65.332 - Trigger finger, left middle finger Plan: He was seen for this by orthopedics a few weeks ago and is now tentatively scheduled for trigger finger surgery in July 2024 (9) Anxiety: Code(s): F41.9 - Anxiety disorder, unspecified Plan: Continue Lorazepam 0.5 mg twice a day as needed (10) Depression: Code(s): F32.9 - Major depressive disorder, single episode, unspecified Qualifiers: Depression Type: major depressive disorder Major depression recurrence: recurrent Active/Remission status: currently active Major depression episode severity: unspecified Qualified Code(s): F33.9 - Major depressive disorder, recurrent, unspecified Plan: Follow up with Psychiatry as scheduled (11) Obesity (BMI 30-39.9): Code(s): E66.9 - Obesity, unspecified Plan: Reinforced diet/exercise as tolerated/ lose weight Plan Follow up in 4 months Orders: Orders Lipid Panel 4 Months E78.00 - Pure hypercholesterolemia, unspecified UA CC w/rflx Micro + Cult 4 Months R30.0 - Dysuria Complete Blood Count Auto Diff 4 Months D64.9 - Anemia, unspecified Comprehensive [place]. Panel Fast 4 Months E78.00 - Pure hypercholesterolemia, unspecified Hemoglobin A1c 4 Months R73.01 - Impaired fasting glucose TSH reflex Free T4 4 Months E78.00 - Pure hypercholesterolemia, unspecified Medications: New loratadine 10 mg PO DAILY 90 days PRN 90 tabs 3RF allergy symptoms J30.9 - Allergic rhinitis, unspecified Refilled atorvastatin 40 mg PO BEDTIME 90 days 90 tabs 1RF Coding Level of Care Code Est Pt Level 4 (79767) Complex EM visit Add On G2211 Diagnoses Pure hypercholesterolemia E78.00 Benign essential hypertension I10 Impaired fasting glucose R73.01 Thoracic aortic aneurysm without rupture, unspecified part I71.20 Thoracic aorta location: unspecified Presence of rupture: without rupture Ocular hypertension, unspecified laterality H40.059 Laterality: unspecified laterality Allergic rhinitis due to pollen, unspecified seasonality J30.1 Allergic rhinitis trigger: pollen Allergic rhinitis seasonality: unspecified Primary osteoarthritis of left foot M19.072 Osteoarthritis type: primary Trigger finger, left middle finger M65.332 Anxiety F41.9 Episode of recurrent major depressive disorder, unspecified depression episode severity F33.9 Depression Type: major depressive disorder Major depression recurrence: recurrent Active/Remission status: currently active Major depression episode severity: unspecified Obesity (BMI 30-39.9) E66.9 Additional Codes CARLA-7 Assessment Billing - CARLA-7 Assessment Tool: CARLA-7 Assessment 07843 ([id number])
== END 2024-03-26 10:59 | disposition home or self-care (01) ==
PROVIDERS: PCP Internal Medicine; Visit Provider Internal Medicine
DX: I71.20 Thoracic aortic aneurysm, without rupture, unspecified (principal); F33.9 Major depressive disorder, recurrent, unspecified; E78.00 Pure hypercholesterolemia, unspecified; I10 Essential (primary) hypertension; R73.01 Impaired fasting glucose; H40.059 Ocular hypertension, unspecified eye; J30.1 Allergic rhinitis due to pollen; M19.072 Primary osteoarthritis, left ankle and foot; M65.332 Trigger finger, left middle finger; F41.9 Anxiety disorder, unspecified; E66.9 Obesity, unspecified
CPT/HCPCS: 99214; G2211

== ENCOUNTER → 2024-08-07 10:28 | Outpatient (REF) | payer MEDICARE, MEDICAID, SELFPAY ==
--- NOTE | 2024-08-07 10:30 | CA_ITS ---
Transthoracic Echocardiogram Patient (Last, First, Middle): Bib Escalante P Gender: Male Date of : 1955 Age: 69 Procedure Date: 08/07/2024 Procedure Type: Transthoracic Echocardiogram Location: OP Height: 182.88 cm Weight: 113.4 kg BSA: 2.34 m2 Heart Rate: bpm BP: 128 / 82 mmHg Rejected Items Clerk: TO Referring MD: Marialuisa Adrian SUPPLEMENTAL NURSE-C Symptoms: I71.2 - Thoracic aortic aneurysm, without rupture Study Quality: Fair/Contrast ECG Rhythm: Sinus Conclusions: - The left ventricular systolic function is normal. The calculated ejection fraction is 64% by biplane method. - No obvious valvular pathology seen on this study. - There is mild dilatation of the sinuses of Valsalva measuring 4.40 cm, moderate dilatation of the ascending aorta measuring 4.60 cm, and mild dilatation of the aortic arch measuring 3.90 cm. Findings Procedure Information Contrast agent, definity, is being given per protocol without apparent complications. Left Ventricle Normal left ventricular cavity size. The left ventricular systolic function is normal. The calculated ejection fraction is 64% by biplane method. There is no evidence of regional wall motion abnormalities. Diastolic function is normal for age. There is mild septal asymmetric hypertrophy. Right Ventricle Mildly increased right ventricular cavity size. There is normal right ventricular systolic function. Atria The left atrium is mildly dilated. The right atrium is normal in size. Aortic Valve There is a normal trileaflet aortic valve. There is mild calcification of the aortic valve. There is no aortic valve stenosis. There is trace (trivial) aortic valve regurgitation. Mitral Valve The mitral valve appears normal. There is trace mitral valve regurgitation. There is no mitral valve stenosis. Pulmonic Valve The pulmonic valve is likely normal. There is trace pulmonic valve regurgitation. Tricuspid Valve There is no tricuspid valve regurgitation. Tricuspid regurgitation envelope is inadequate for calculation of right ventricular systolic pressure. Great Vessels There is mild dilatation of the sinuses of Valsalva measuring 4.40 cm, moderate dilatation of the ascending aorta measuring 4.60 cm, and mild dilatation of the aortic arch measuring 3.90 cm. Venous The inferior vena cava is normal in size and collapses greater than 50% with inspiration. Prior Study Comparison Ascending aortic size 4.4cm in 2022 and 4.6cm in 2021. Differences probably technical. Overall no significant change. Recommendations, Care & Conclusions No obvious valvular pathology seen on this study. Measurements 2D Linear Measurements IVSd: 1.21 0.6-0.9/0.6-1.0 cm LVIDd: 5.56 3.9-5.3/4.2-5.9 cm LVIDd Index: 2.38 2.4-3.2/2.2-3.1 cm/m2 LVIDs: 3.53 2.0-3.6 cm LVPWd: 1.00 0.7-1.1 cm LA Diam: 4.20 2.7-3.8/3.0-4.0 cm LAIDs Index: 1.79 1.5-2.3 cm/m2 LV Mass: 309.11 67-162/88-224 g LV Mass Index: 132.10 43-95/49-115 g/m2 LVOT Diam: 2.50 3.0+(-)1.3 cm 2D Systolic Function EF 4C: 60.60 >55% EF 2C: 67.00 >55% EF BiP: 64.30 >55% Mitral Valve MV Pk E: 0.56 MV PK A: 0.69 MV Decel Time: 196.00 E/A: 0.80 E'Lateral: 8.05 E'Medial: 5.66 E/E' Med: 9.90 E/E' Lat: 7.00 PHT: 57.00 MVA PHT: 3.86 Decel [place]: 2.86 Aortic Valve AoV Pk Robbin: 1.59 AoV Mn Robbin: 1.05 AoV VTI: 0.32 AoV Pk Grad: 10.00 Aov Mn Grad: 5.00 JOSE Cont.VTI: 3.52 LVOT LVOT Pk Robbin: 1.05 LVOT Mn Robbin: 0.65 LVOT VTI: 0.23 LVOT Pk Grad: 4.00 LVOT Mn Grad: 2.00 LVOT Diam: 2.50 LVOT Area: 4.91 Diastolic Function MV Pk E: 0.56 MV Pk A: 0.69 E/A: 0.80 E'Medial: 5.66 E/E' Med: 9.90 E' Laterial: 8.05 E/E' Lat: 7.00 Right Ventricle TAPSE (mm): 25.70 TVS' Robbin: 14.10 Tricuspid Valve RA Press: 3.00 Great Vessels Aorta Sinus of Valsalva: 4.40 2.0-3.5 cm Ao Asc: 4.60 2.1-3.4 cm Ao Arch: 3.90 Updated in Other Vendor System with Status of Final Wilian Shin MD electronically signed on 08/08/2024 4:53:57 PM with status of Final
== END ==
LOC: HO.CARD 10:28
PROVIDERS: PCP Internal Medicine; Visit Provider Nurse Practitioner Family
DX: I71.20 Thoracic aortic aneurysm, without rupture, unspecified (principal)
CPT/HCPCS: 93306; Q9957

== ENCOUNTER → 2024-08-07 10:30 | Outpatient (BNV) | payer MEDICARE, MEDICAID, SELFPAY | PROVIDERS: PCP Internal Medicine; Visit Provider Internal Medicine | DX: I42.2 Other hypertrophic cardiomyopathy (principal); I71.21 Aneurysm of the ascending aorta, without rupture | CPT/HCPCS: 93306 ==

== ENCOUNTER 2024-09-16 06:40 | Outpatient (REF) | payer MEDICARE, MEDICAID, SELFPAY ==
[2024-09-16 06:52] LABS: MANUAL DIFF FLAG NO
[2024-09-16 07:20] LABS: Basophils Absolute Auto 0.1 X10*3/uL (0.0-0.2); Basophils Percent Auto 0.9 % (0-2); Eosinophils Absolute Auto 0.4 X10*3/uL (0.0-0.4); Eosinophils Percent Auto 5.3 % (0-4); Hematocrit 42.3 % (42.0-52.0); Imm Gran Abs Auto 0.03 X10*3/uL (0.00-0.03); Imm Gran Pct Auto 0.4 % (0.0-0.4); Lymphocytes Absolute Auto 2.2 X10*3/uL (1.2-4.9); Lymphocytes Percent Auto 26.6 % (20-40); Mean Corpuscular HGB Conc 33.1 g/dl (31.0-36.0); Mean Corpuscular Hemoglobin 31.1 pg (27.0-33.0); Mean Platelet Volume 10.3 fL (9.4-12.4); Monocytes Absolute Auto 0.7 X10*3/uL (0.1-1.2); Monocytes Percent Auto 8.5 % (2-11); Neutrophils Absolute Auto 4.8 x10*3/uL (2.0-8.3); Neutrophils Percent Auto 58.3 % (45-73); Platelet Count 243 X10*3/uL (160-400); White Blood Count 8.2 X10*3/uL (4.8-10.8)
[2024-09-16 07:21] LABS: Appearance Urine Clear; Color Urine Yellow; Glucose Urine UA Negative (Negative); Leukocyte Esterase Urine Negative (Negative); Nitrite Urine Negative (Negative); PH 6.5 (5.0-9.0); Specific Gravity - Urine 1.015 (1.005-1.025); Urine Blood Negative (Negative); Urine Ketones Negative (Negative); Urine Protein Negative (Neg-Trace)
[2024-09-16 07:29] LABS: Estimated Average Glucose 120 mg/dL; Hemoglobin A1C 143.2542 umol/L; Hemoglobin A1c % 5.8 % (<6.0)
[2024-09-16 07:49] LABS: Alanine Aminotransferase 27 U/L (0-40); Albumin Level 4.4 g/dL (3.5-5.0); Alkaline Phosphatase 87 U/L (39-117); Anion Gap 12 (12-20); Aspartate Amino Transferase 33 U/L (5-37); Bilirubin Total 0.8 mg/dL (0.0-1.0); Blood Urea Nitrogen 10 mg/dL (9-16); Calcium 9.4 mg/dL (8.4-10.2); Carbon Dioxide 26 mmol/L (22-29); Chloride 101 mmol/L (96-108); Cholesterol 150 mg/dL (<200); Estimated Glomerular Filt Rate > 60; Glucose Fasting 96 mg/dL (60-99); HDL Cholesterol 47 mg/dL (>40); LDL Cholesterol Calculated 58 mg/dL (<100); Sodium 135 mmol/L (135-145); Total Protein 7.1 g/dL (6.5-8.0); Triglycerides 227 mg/dL (<150)
[2024-09-16 08:06] LABS: TSH reflex Free T4 1.35 uIU/mL (0.32-4.0)
== END 2024-09-16 06:41 | disposition home or self-care (01) ==
LOC: HO.LAB 06:40
PROVIDERS: PCP Internal Medicine; Visit Provider Internal Medicine
DX: D64.9 Anemia, unspecified (principal); R30.0 Dysuria; E78.00 Pure hypercholesterolemia, unspecified; R73.01 Impaired fasting glucose
CPT/HCPCS: 36415; 80053; 80061; 81003; 83036; 84443; 85025

== ENCOUNTER 2024-09-22 10:42 | Outpatient (AMB) | payer MEDICARE, MEDICAID, SELFPAY ==
[2024-09-22 10:46] VITALS: BP 130/82; PULSE 79; O2SAT 93; BMI 32.9
--- NOTE | 2024-09-22 10:46 | A.OFFPC_ITS ---
Vital Signs 09/22/24 10:46 Height 6 ft Weight 242 lb 6 oz BMI 32.9 BP 130/82 Blood Pressure Location Lt brachial Position Sitting Pulse 79 Pulse Source Pulse Oximeter Pulse Oximetry (%) 93 Oxygen Delivery Method Room Air Intake Visit Reasons: Hyperlipidemia, HTN Pre K Lead Teacher Required: No Accompanied by: Self / Same As Patient Allergies Lisinopril Adverse Reaction (Intermediate, Uncoded 09/22/24 10:52) diarrhea Medication List - Last Reconciled 09/22/24 by Janak Garcia MD amlodipine 5 mg PO DAILY 90 days aspirin (Adult Aspirin Regimen) 81 mg PO DAILY atorvastatin 40 mg PO BEDTIME 90 days ezetimibe 10 mg PO DAILY loratadine 10 mg PO DAILY PRN 90 days metoprolol succinate ER 100 mg PO DAILY Tobacco use date assessed: 09/22/24 Fall risk assessment: No Falls in past year Last assessed Fall Risk: 09/22/24 Dental Screening Dental Screen Date: 09/22/24 Did you have a dental visit in the last 12 months?: Yes Did you have a dental problem in the last 6 months where you did not have access to dental care?: No Was dental information given to patient?: Patient has dentist HPI Hyperlipidemia, HTN HPI Details Patient comes in today for his follow up visit States that he feels okay He denies any headaches or dizziness Denies any chest pains, no SOB No nausea/vomiting, no abdominal pain No change in bowel habits noted He had his follow up labs done last week - to discuss his results [facility] Medical History Allergic rhinitis Pure hypercholesterolemia Benign essential hypertension Thoracic aortic aneurysm Obesity (BMI 30-39.9) Depression Anxiety History of alcohol use Osteoarthritis of left foot Malignant melanoma of face Ocular hypertension Impaired fasting glucose Palpitations Hypertension Hyperlipidemia Surgical History History of tooth extraction History of melanoma excision Status post Mohs surgery (~07/09/17) Family History Father Hypertension Stroke Mother Hypertension CVD (cardiovascular disease) Son No problems noted. Social History Housing: House Alcohol intake: former Patient Tobacco Use Status: Former Tobacco user e-Cigarette/Vaping Use: Never Used Second Hand Smoke Exposure: Yes service: No Current occupational status: retired Current occupation: right hand dominant Cognitive needs: No Hearing needs: Yes (hearing aide) Vision needs: No Questionnaire PHQ-9 Over the last 2 weeks, how often have you been bothered by any of the following problems? 1. Little interest or pleasure in doing things: not at all 2. Feeling down, depressed, or hopeless: not at all 3. Trouble falling or staying asleep, or sleeping too much: not at all 4. Feeling tired or having little energy: not at all 5. Poor appetite or overeating: not at all 6. Feeling bad about yourself - or that you are a failure or have let yourself or your family down: not at all 7. Trouble concentrating on things, such as reading the newspaper or watching television: not at all 8. Moving or speaking so slowly that other people could have noticed. Or the opposite - being so fidgety or restless that you have been moving around a lot more than usual: not at all 9. Thoughts that you would be better off or of hurting yourself in some way: not at all Total score: 0 Depression Screening Interpretation: Negative Depression Screening Done: Yes 14914 - PHQ-9 Billing: Yes Source: Developed by Drs. Julio Grubbs, Rafaela Claire, Cedrick Beckford and colleagues, with an educational marie from [employer]. Thrive Questionnaire Date Thrive assessed: 09/22/24 I am a: Patient What is your living situation today?: I have a steady place to live Within the past 12 months, did the food you bought not last and you didn't have the money to get more?: Never true Within the past 12 months, did you worry whether your food would run out before you got money to buy more?: Never true Do you have trouble paying for medicines?: No Do you have trouble getting transportation to medical appointments?: No Do you have trouble paying your heating and electricity bill?: No Do you have trouble taking care of your child, family member or friend?: No Do you have trouble with day-to-day activities such as bathing, preparing meals, shopping, managing finances, etc.?: No Are you currently unemployed and looking for a job?: No Are you interested in more education?: No Please select the resources that you would like help with: None Currently or been in a relationship where the following occur: No concerns reported THRIVE Score: 0 AUDIT C Alcohol Use Questionnaire (AUDIT-C) 1. How often do you have a drink containing alcohol?: Never 3. How often do you have six or more drinks on one occasion?: Never Total Score: 0 Score Reviewed/Action Taken: Yes CARLA-7 AMB Questionnaire CARLA-7 Date CARLA - 7 assessed: 09/22/24 Feeling nervous, anxious, or on edge: 0 = Not at all Not being able to stop or control worryin = Not at all Worrying too much about different things: 0 = Not at all Trouble relaxin = Not at all Being so restless that it is hard to sit still: 0 = Not at all Becoming easily annoyed or irritable: 0 = Not at all Feeling afraid as if something awful might happen: 0 = Not at all Total CARLA-7 score (0-4 normal; 5-9 mild; 10-14 moderate; 15-21 severe): 0 Source: Developed by Drs. Julio Grubbs, Rafaela Claire, Cedrick Beckford and colleagues, with an educational marie from [employer]. CARLA-7 Assessment Billing CARLA-7 Assessment Tool: CARLA-7 Assessment 49266 Review of Systems Const Denies chills, Denies fatigue, Denies fever(s) and Denies headache(s) ENT Denies dysphagia, Denies dizziness, Denies otalgia, Denies headache(s), Denies neck pain, Denies odynophagia and Denies sore throat Card Denies chest pain, Denies palpitations and Denies dyspnea Resp Denies chest congestion, Denies cough, Denies excessive phlegm production and Denies dyspnea GI Denies abdominal pain, Denies constipation, Denies dysphagia, Denies heartburn, Denies diarrhea, Denies nausea, Denies odynophagia and Denies vomiting Denies dysuria, Denies nocturia and Denies urinary frequency Musc Reports as per HPI, Denies back pain, Reports arthralgias (on and off, relieved with OTC acetaminophen) and Denies neck pain Skin/Breast Denies rash Neuro Denies dizziness and Denies headache(s) Endo Denies fatigue and Denies palpitations Physical exam (Primary Care) Vital Signs: Last Vital Signs Pulse 79 09/22/24 10:46 BP 130/82 09/22/24 10:46 Pulse Ox 93 09/22/24 10:46 Oxygen Delivery Method Room Air 09/22/24 10:46 BMI result Body Mass Index 32.9 Tobacco/Smoking Status: Tobacco use Status Tobacco use date assessed 09/22/24 09/22/24 10:50 Patient Tobacco Use Status Former Tobacco user 09/22/24 10:50 e-Cigarette/Vaping Use Never Used 09/22/24 10:50 PHQ-9: PHQ-9 Score PHQ-9: Total score 0 09/22/24 10:57 Depression Screening Interpretation: Negative Thrive Assessment: Date of Thrive Assessment Date Thrive assessed 09/22/24 09/22/24 10:50 Currently or been in a relationship where the following occur: No concerns reported Const General: no acute distress and alert HENMT Ears: TM's normal bilaterally and EAC's normal Throat: Yes posterior oropharynx normal and Yes tonsils normal (no TP congestion noted) Neck Neck: Yes no lymphadenopathy and Yes supple Thyroid: Thyroid normal Resp Auscultation: clear to auscultation bilaterally, no rales and no wheezes Cardio Rate: regular rate Rhythm: regular rhythm Heart sounds: no murmurs GI Palpation (GI): Soft to palpation and nontender Auscultation: normal bowel sounds General: Yes no CVA tenderness Back/Spine/Pelvis Back: no CVA tenderness Thoracic/Lumbar Spine: No lumbar spinal tenderness Skin Rashes: no rashes Extrem General: Yes no clubbing, cyanosis or edema Results Reviewed Results Reviewed: Laboratory Tests 09/16/24 09/16/24 06:48 06:49 WBC 8.2 Hgb 14.0 Hct 42.3 Plt Count 243 Sodium 135 Potassium 4.0 Creatinine 0.81 Estimated GFR > 60 Fasting Glucose 96 Hemoglobin A1c % 5.8 Calcium 9.4 AST 33 ALT 27 Triglycerides 227 H Cholesterol 150 LDL Cholesterol, Calc 58 HDL Cholesterol 47 TSH 1.35 Ur Specific [place] 1.015 Urine Protein Negative Urine Glucose (UA) Negative Urine Blood Negative Urine Nitrite Negative Ur Leukocyte Esterase Negative Coding Level of Care Code Est Pt Level 4 (27444) Diagnoses Pure hypercholesterolemia E78.00 Benign essential hypertension I10 Impaired fasting glucose R73.01 Thoracic aortic aneurysm without rupture, unspecified part I71.20 Thoracic aorta location: unspecified Presence of rupture: without rupture Ocular hypertension, unspecified laterality H40.059 Laterality: unspecified laterality Allergic rhinitis due to pollen, unspecified seasonality J30.1 Allergic rhinitis trigger: pollen Allergic rhinitis seasonality: unspecified Primary osteoarthritis of left foot M19.072 Osteoarthritis type: primary Trigger finger, left middle finger M65.332 Anxiety F41.9 Episode of recurrent major depressive disorder, unspecified depression episode severity F33.9 Depression Type: major depressive disorder Major depression recurrence: recurrent Active/Remission status: currently active Major depression episode severity: unspecified Obesity (BMI 30-39.9) E66.9 Additional Codes CARLA-7 Assessment Billing - CARLA-7 Assessment Tool: CARLA-7 Assessment 83943 ([id number]) PHQ-9 - 58994 - PHQ-9 Billing: Yes ([id number]) Assessment & Plan Assessment & Plan (1) Pure hypercholesterolemia: Code(s): E78.00 - Pure hypercholesterolemia, unspecified Category: Medical Plan: Results of his labs done last week reviewed and discussed with patient Reinforced low cholesterol diet Continue Atorvastatin 40 mg QD Will recheck his labs and fasting lipids in 4 months for follow up (2) Benign essential hypertension: Code(s): I10 - Essential (primary) hypertension Category: Medical Plan: Reinforced low-sodium diet - goal is systolic BP of 120 mm or less due to his thoracic aneurysm/aortic dilation Continue Metoprolol ER 100 mg QD and Amlodipine 5 mg QD He is reminded to continue monitoring his blood pressure regularly (3) Impaired fasting glucose: Code(s): R73.01 - Impaired fasting glucose Category: Medical Plan: His FBS was normal at 96 mg/dl and HgbA1c was at 5.8% on his recent labs; his HgbA1c was previously at 5.9% a few months ago Reinforced low calorie/low carb diet; exercise as tolerated (4) Thoracic aortic aneurysm: Comment: 4.4 cm by echo 05/2021 Code(s): I71.2 - Thoracic aortic aneurysm, without rupture Category: Medical Qualifiers: Thoracic aorta location: unspecified Presence of rupture: without rupture Qualified Code(s): I71.20 - Thoracic aortic aneurysm, without rupture, unspecified Plan: His thoracic aortic aneurysm was at 4.6 cm on his repeat echocardiogram done a few weeks ago in July 2024 - (+) mild dilatation of the sinuses of Valsalva measuring 4.40 cm, moderate dilatation of the ascending aorta measuring 4.60 cm, and mild dilatation of the aortic arch measuring 3.90 cm He was at 4.4 cm on his echocardiogram done last year on 07/24/2023 and was previously at 4.6 cm on his echocardiogram done on 06/28/2022 and at 4.4 cm on US in May 2021 Have emphasized to him again aggressive blood pressure control, with systolic BP of 120 mm or less as goal ot help slow down progression He is reminded as well to avoid strenuous isometric exercise and to seek emergency care if he develops sudden chest pains at any time Will continue with conservative follow-up and monitoring with?annual echocardiogram; follow up with cardiology as scheduled (5) Ocular hypertension: Code(s): H40.059 - Ocular hypertension, unspecified eye Category: Medical Qualifiers: Laterality: unspecified laterality Qualified Code(s): H40.059 - Ocular hypertension, unspecified eye Plan: Follow up with ophthalmology as scheduled (6) Allergic rhinitis: Code(s): J30.9 - Allergic rhinitis, unspecified Category: Medical Qualifiers: Allergic rhinitis trigger: pollen Allergic rhinitis seasonality: unspecified Qualified Code(s): J30.1 - Allergic rhinitis due to pollen Plan: Continue Loratadine 10 mg QD PRN (7) Osteoarthritis of left foot: Code(s): M19.072 - Primary osteoarthritis, left ankle and foot Category: Medical Qualifiers: Osteoarthritis type: primary Qualified Code(s): M19.072 - Primary osteoarthritis, left ankle and foot Plan: His foot symptoms have remained adequately controlled lately - takes OTC Acetaminophen PRN He is reminded to avoid OTC NSAIDs as much as possible (8) Trigger finger, left middle finger: Code(s): M65.332 - Trigger finger, left middle finger Category: Medical Plan: He was previously seen for this by orthopedics and was scheduled for trigger finger surgery in July 2024 but patient apparently asked to hold off on surgery as his finger was reportedly feeling better at the time Follow up with orthopedics as scheduled (9) Anxiety: Code(s): F41.9 - Anxiety disorder, unspecified Category: Medical Plan: Continue Lorazepam 0.5 mg twice a day as needed (10) Depression: Code(s): F32.9 - Major depressive disorder, single episode, unspecified Category: Medical Qualifiers: Depression Type: major depressive disorder Major depression recurrence: recurrent Active/Remission status: currently active Major depression episode severity: unspecified Qualified Code(s): F33.9 - Major depressive disorder, recurrent, unspecified Plan: Follow up with Psychiatry as scheduled (11) Obesity (BMI 30-39.9): Code(s): E66.9 - Obesity, unspecified Category: Medical Plan: Reinforced diet/exercise as tolerated/lose weight - he was able to lose about 10 pounds since his last visit Plan Follow up in 4 months Orders: Orders Complete Blood Count Auto Diff 4 Months D64.9 - Anemia, unspecified Hemoglobin A1c 4 Months R73.01 - Impaired fasting glucose UA CC w/rflx Micro + Cult 4 Months R30.0 - Dysuria Vitamin D 25-OH Total 4 Months E55.9 - Vitamin D deficiency, unspecified Comprehensive [place]. Panel Fast 4 Months E78.00 - Pure hypercholesterolemia, un specified Lipid Panel 4 Months E78.00 - Pure hypercholesterolemia, unspecified
== END 2024-09-22 11:03 | disposition home or self-care (01) ==
PROVIDERS: PCP Internal Medicine; Visit Provider Internal Medicine
DX: I71.20 Thoracic aortic aneurysm, without rupture, unspecified (principal); F33.9 Major depressive disorder, recurrent, unspecified; E78.00 Pure hypercholesterolemia, unspecified; I10 Essential (primary) hypertension; R73.01 Impaired fasting glucose; H40.059 Ocular hypertension, unspecified eye; J30.1 Allergic rhinitis due to pollen; M19.072 Primary osteoarthritis, left ankle and foot; M65.332 Trigger finger, left middle finger; F41.9 Anxiety disorder, unspecified; E66.9 Obesity, unspecified

== ENCOUNTER → 2024-09-22 10:42 | Outpatient (BNVA) | payer MEDICARE, MEDICAID, SELFPAY | PROVIDERS: PCP Internal Medicine; Visit Provider Internal Medicine | DX: E78.00 Pure hypercholesterolemia, unspecified (principal); I10 Essential (primary) hypertension; R73.01 Impaired fasting glucose; I71.20 Thoracic aortic aneurysm, without rupture, unspecified; H40.059 Ocular hypertension, unspecified eye; J30.1 Allergic rhinitis due to pollen; M19.072 Primary osteoarthritis, left ankle and foot; M65.332 Trigger finger, left middle finger; F41.9 Anxiety disorder, unspecified; F33.9 Major depressive disorder, recurrent, unspecified; E66.9 Obesity, unspecified | CPT/HCPCS: 96127; 99212 ==

== ENCOUNTER 2025-06-01 06:06 | Outpatient (REF) | payer MEDICARE, MEDICAID, SELFPAY ==
--- OUTSIDE RECORDS SUMMARY | 2025-06-01 06:09 | XMS_ITS | Patient Health Record ---
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 Name Role Phone Aj Garcia MDh Primary Care Provider Julio Son Unavailable [phone] Reason For Referral No Information Medications Medication SIG (Take, Route, Frequency, Duration) Notes Start Date End Date Status Colyte with Flavor Packs 240 GM 1 ml one time Orally Once a day for 1 day(s) 10/08/2012 Active Tramadol & Dietary Manage Prod 50MG 10/22/2024 10/22/2024 Active LORazepam 0.5MG 10/22/2024 10/22/2024 Ac tive Aspir-81 81MG 10/22/2024 10/22/2024 Acti ve Simvastatin 40MG 10/22/2024 10/22/2024 A ctive Problems Problem Type SNOMED Code ICD Code Onset Dates Problem Status W/U Status Risk Notes Problem Colon cancer screening (V76.51) Active confirmed Problem History of adenomatous polyp of colon ([id number]) History of adenomatous polyp of colon (V12.72) Active confirmed Plan Of Treatment Future Test Test Name Order Date COLONOSCOPY 10/08/2012 Insurance Providers Payer Name Payer Address Payer Phone Subscriber Number Group Number Insured Name Patient Relationship to Insured Coverage Start Date Coverage End Date MEDICARE OF [employer] [address] [place] [id number] MIKE VELARDE Self - patient is the insured Medical (General) History Medical History History ICD Code Hyperlipidemia Colonoscopy -removal of tubular adenomas Denies AR,DM,CVA,Lung disease,renal dise ase Left shoulder and left foot pain Anxiety Surgical History Surgery Date(Month/Year) cataract surgery right ear surgery-mastoid
[2025-06-01 06:37] LABS: MANUAL DIFF FLAG NO
[2025-06-01 07:36] LABS: Hematocrit 42.5 % (42.0-52.0); Hemoglobin 14.2 g/dl (14.0-18.0); Imm Gran Abs Auto 0.03 X10*3/uL (0.00-0.03); Imm Gran Pct Auto 0.4 % (0.0-0.4); Lymphocytes Absolute Auto 2.2 X10*3/uL (1.2-4.9); Mean Corpuscular HGB Conc 33.4 g/dl (31.0-36.0); Mean Corpuscular Hemoglobin 31.3 pg (27.0-33.0); Mean Corpuscular Volume 93.8 fL (80.0-98.0); NRBC Abs Auto 0.000 X10*3/uL (0.0-0.012); NRBC Pct Auto 0.0 /100WBC (0.0-0.2); Platelet Count 215 X10*3/uL (160-400); Red Blood Count 4.53 X10*6/uL (4.60-5.80); White Blood Count 7.7 X10*3/uL (4.8-10.8)
[2025-06-01 08:08] LABS: Appearance Urine Clear; Glucose Urine UA Negative (Negative); PH 6.0 (5.0-9.0); Specific Gravity - Urine 1.015 (1.005-1.025)
[2025-06-01 08:17] LABS: Alanine Aminotransferase 28 U/L (0-40); Albumin Level 4.7 g/dL (3.5-5.0); Alkaline Phosphatase 84 U/L (39-117); Anion Gap 14 (12-20); Aspartate Amino Transferase 30 U/L (5-37); Blood Urea Nitrogen 12 mg/dL (9-16); Calcium 9.1 mg/dL (8.4-10.2); Carbon Dioxide 24 mmol/L (22-29); Chloride 105 mmol/L (96-108); Cholesterol 201 mg/dL (<200); Estimated Glomerular Filt Rate > 60; HDL Cholesterol 46 mg/dL (>40); Potassium 4.0 mmol/L (3.3-5.1); Sodium 139 mmol/L (135-145); Total Protein 7.4 g/dL (6.5-8.0); Triglycerides 272 mg/dL (<150)
[2025-06-01 08:20] LABS: Hemoglobin A1C 159.5926 umol/L; Total Hemoglobin (HGBA1C) 3934.1202 umol/L
== END 2025-06-01 06:07 | disposition home or self-care (01) ==
LOC: HO.LAB 06:06
PROVIDERS: PCP Internal Medicine; Visit Provider Internal Medicine
DX: R73.01 Impaired fasting glucose (principal); D64.9 Anemia, unspecified; E55.9 Vitamin D deficiency, unspecified; E78.00 Pure hypercholesterolemia, unspecified; R30.0 Dysuria
CPT/HCPCS: 36415; 80053; 80061; 81003; 82306; 83036; 85025

== ENCOUNTER 2025-06-16 15:52 | Outpatient (AMB) | payer MEDICARE, MEDICAID, SELFPAY ==
[2025-06-16 15:57] VITALS: BP 154/92; PULSE 88; TEMP 36.2; O2SAT 95; BMI 31.8
--- NOTE | 2025-06-16 15:57 | MHC.PC.OV ---
Vital Signs 06/16/25 15:57 Height 6 ft Weight 234 lb 8 oz BMI 31.8 BP 154/92 H Blood Pressure Location Lt brachial Position Sitting Pulse 88 Pulse Source Pulse Oximeter Temp 97.1 F Temp Source Temporal Artery Scan Pulse Oximetry (%) 95 Oxygen Delivery Method Room Air Intake Visit Reasons: follow up Allergies Lisinopril Adverse Reaction (Intermediate, Uncoded 06/16/25 16:18) diarrhea Medication List - Last Reconciled 06/16/25 by Janak Garcia MD amlodipine 5 mg PO DAILY 90 days aspirin (Adult Aspirin Regimen) 81 mg PO DAILY atorvastatin 40 mg PO BEDTIME 90 days ezetimibe 10 mg PO DAILY loratadine 10 mg PO DAILY PRN 90 days metoprolol succinate ER 100 mg PO DAILY Tobacco use date assessed: 06/16/25 Fall risk assessment: No Falls in past year Last assessed Fall Risk: 06/16/25 Dental Screening Dental Screen Date: 06/16/25 Did you have a dental visit in the last 12 months?: No Did you have a dental problem in the last 6 months where you did not have access to dental care?: No Was dental information given to patient?: Patient declined HPI follow up HPI Details Patient comes in today for his follow up visit States that he feels okay He denies any headaches or dizziness Denies any chest pains, no SOB No nausea/vomiting, no abdominal pain No change in bowel habits noted He had his follow up labs done a couple of weeks ago - to discuss his results Adds that he used to see Dr. Renteria for regular ear check ups due to his Hx of cholesteatoma and frequent cerumen impaction but would lilke to get a referral now to see another ENT specialist - thinks he has seen Dr. Romero in the past before he retired and also recalls seeing a Dr. Du many years ago [facility] Medical History History of cholesteatoma Allergic rhinitis Pure hypercholesterolemia Benign essential hypertension Thoracic aortic aneurysm Obesity (BMI 30-39.9) Depression Anxiety History of alcohol use Osteoarthritis of left foot Malignant melanoma of face Ocular hypertension Impaired fasting glucose Palpitations Hypertension Hyperlipidemia Surgical History History of tooth extraction History of melanoma excision Status post Mohs surgery (~07/09/17) Family History Father Hypertension Stroke Mother Hypertension CVD (cardiovascular disease) Son No problems noted. Social History Housing: House Alcohol intake: former Patient Tobacco Use Status: Former Tobacco user e-Cigarette/Vaping Use: Never Used Second Hand Smoke Exposure: Yes service: No Current occupational status: retired Current occupation: right hand dominant Cognitive needs: No Hearing needs: Yes (hearing aide) Vision needs: No Questionnaire PHQ-9 Over the last 2 weeks, how often have you been bothered by any of the following problems? 1. Little interest or pleasure in doing things: not at all 2. Feeling down, depressed, or hopeless: not at all 3. Trouble falling or staying asleep, or sleeping too much: not at all 4. Feeling tired or having little energy: not at all 5. Poor appetite or overeating: not at all 6. Feeling bad about yourself - or that you are a failure or have let yourself or your family down: not at all 7. Trouble concentrating on things, such as reading the newspaper or watching television: not at all 8. Moving or speaking so slowly that other people could have noticed. Or the opposite - being so fidgety or restless that you have been moving around a lot more than usual: not at all 9. Thoughts that you would be better off or of hurting yourself in some way: not at all Total score: 0 Depression Screening Interpretation: Negative Depression Screening Done: Yes 55657 - PHQ-9 Billing: Yes Source: Developed by Drs. Julio Grubbs, Rafaela Claire, Cedrick Beckford and colleagues, with an educational marie from [employer]. Thrive Questionnaire Date Thrive assessed: 06/16/25 I am a: Patient What is your living situation today?: I have a steady place to live Within the past 12 months, did the food you bought not last and you didn't have the money to get more?: Never true Within the past 12 months, did you worry whether your food would run out before you got money to buy more?: Never true Do you have trouble paying for medicines?: No Do you have trouble getting transportation to medical appointments?: No Do you have trouble paying your heating and electricity bill?: No Do you have trouble taking care of your child, family member or friend?: No Do you have trouble with day-to-day activities such as bathing, preparing meals, shopping, managing finances, etc.?: No Are you currently unemployed and looking for a job?: No Are you interested in more education?: No Please select the resources that you would like help with: None Currently or been in a relationship where the following occur: No concerns reported THRIVE Score: 0 AUDIT C Alcohol Use Questionnaire (AUDIT-C) 1. How often do you have a drink containing alcohol?: 2-4 times a month 2. How many drinks containing alcohol do you have on a typical day when you are drinking?: 3 or 4 3. How often do you have six or more drinks on one occasion?: Never Total Score: 3 Score Reviewed/Action Taken: Yes CARLA-7 AMB Questionnaire CARLA-7 Date CARLA - 7 assessed: 06/16/25 Feeling nervous, anxious, or on edge: 0 = Not at all Not being able to stop or control worryin = Not at all Worrying too much about different things: 0 = Not at all Trouble relaxin = Not at all Being so restless that it is hard to sit still: 0 = Not at all Becoming easily annoyed or irritable: 0 = Not at all Feeling afraid as if something awful might happen: 0 = Not at all Total CARLA-7 score (0-4 normal; 5-9 mild; 10-14 moderate; 15-21 severe): 0 Source: Developed by Drs. Julio Grubbs, Rafaela Claire, Cedrick Beckford and colleagues, with an educational marie from [employer]. CARLA-7 Assessment Billing CARLA-7 Assessment Tool: CALRA-7 Assessment 76244 Review of Systems Const Denies chills, Denies fatigue, Denies fever(s) and Denies headache(s) ENT Denies dysphagia, Denies dizziness, Denies otalgia, Denies headache(s), Denies neck pain, Denies odynophagia and Denies sore throat Card Denies chest pain, Denies palpitations and Denies dyspnea Resp Denies chest congestion, Denies cough, Denies excessive phlegm production and Denies dyspnea GI Denies abdominal pain, Denies constipation, Denies dysphagia, Denies heartburn, Denies diarrhea, Denies nausea, Denies odynophagia and Denies vomiting Denies difficulty urinating, Denies dysuria, Denies nocturia and Denies urinary frequency Musc Denies back pain, Reports arthralgias (on and off, relieved with OTC acetaminophen) and Denies neck pain Skin/Breast Denies rash Neuro Denies dizziness and Denies headache(s) Endo Denies fatigue and Denies palpitations Physical exam (Primary Care) Vital Signs: Last Vital Signs Temp 97.1 F 06/16/25 15:57 Pulse 88 06/16/25 15:57 BP 154/92 H 06/16/25 15:57 Pulse Ox 95 06/16/25 15:57 Oxygen Delivery Method Room Air 06/16/25 15:57 BMI result Body Mass Index 31.8 Tobacco/Smoking Status: Tobacco use Status Tobacco use date assessed 06/16/25 06/16/25 16:01 Patient Tobacco Use Status Former Tobacco user 06/16/25 16:01 e-Cigarette/Vaping Use Never Used 06/16/25 16:01 PHQ-9: PHQ-9 Score PHQ-9: Total score 0 06/16/25 16:01 Depression Screening Interpretation: Negative Thrive Assessment: Date of Thrive Assessment Date Thrive assessed 06/16/25 06/16/25 16:01 Currently or been in a relationship where the following occur: No concerns reported Const General: no acute distress and alert HENMT Ears: TM's normal bilaterally and EAC's normal Throat: Yes posterior oropharynx normal and Yes tonsils normal (no TP congestion noted) Neck Neck: Yes supple and No lymphadenopathy Thyroid: Thyroid normal Resp Auscultation: clear to auscultation bilaterally, no rales and no wheezes Cardio Rate: regular rate Rhythm: regular rhythm Heart sounds: no murmurs GI Palpation (GI): Soft to palpation and nontender Auscultation: normal bowel sounds General: Yes no CVA tenderness Back/Spine/Pelvis Back: no CVA tenderness Thoracic/Lumbar Spine: No lumbar spinal tenderness Skin Rashes: no rashes Extrem General: Yes no clubbing, cyanosis or edema Results Reviewed Results Reviewed: Laboratory Tests 06/01/25 06/01/25 06:27 06:30 WBC 7.7 Hgb 14.2 Hct 42.5 Plt Count 215 Sodium 139 Potassium 4.0 Creatinine 0.73 Estimated GFR > 60 Fasting Glucose 105 H Hemoglobin A1c % 5.9 Calcium 9.1 AST 30 ALT 28 Triglycerides 272 H Cholesterol 201 H LDL Cholesterol, Calc 101 H HDL Cholesterol 46 25-OH Vitamin D Total 37.9 Ur Specific Bernie 1.015 Urine Protein Negative Urine Glucose (UA) Negative Urine Blood Negative Urine Nitrite Negative Ur Leukocyte Esterase Negative Coding Level of Care Code Est Pt Level 4 (22412) Diagnoses Pure hypercholesterolemia E78.00 Benign essential hypertension I10 Impaired fasting glucose R73.01 Thoracic aortic aneurysm without rupture, unspecified part I71.20 Thoracic aorta location: unspecified Presence of rupture: without rupture Ocular hypertension, unspecified laterality H40.059 Laterality: unspecified laterality Allergic rhinitis due to pollen, unspecified seasonality J30.1 Allergic rhinitis trigger: pollen Allergic rhinitis seasonality: unspecified History of cholesteatoma Z86.69 Primary osteoarthritis of left foot M19.072 Osteoarthritis type: primary Trigger finger, left middle finger M65.332 Anxiety F41.9 Episode of recurrent major depressive disorder, unspecified depression episode severity F33.9 Depression Type: major depressive disorder Major depression recurrence: recurrent Active/Remission status: currently active Major depression episode severity: unspecified Obesity (BMI 30-39.9) E66.9 Additional Codes CARLA-7 Assessment Billing - CARLA-7 Assessment Tool: CARLA-7 Assessment 09490 ([id number]) PHQ-9 - 41280 - PHQ-9 Billing: Yes ([id number]) Assessment & Plan Assessment & Plan (1) Pure hypercholesterolemia: Code(s): E78.00 - Pure hypercholesterolemia, unspecified Category: Medical Plan: Results of his labs done a couple of weeks ago reviewed and discussed with patient - he is cautioned that his cholesterol levels have all gone up significantly from previous Reinforced low cholesterol diet - he admits to eating a lot of ice cream ([place]) over the past few months Continue Atorvastatin 40 mg QD Will recheck his labs and fasting lipids in 4 months for follow up (2) Benign essential hypertension: Code(s): I10 - Essential (primary) hypertension Category: Medical Plan: Reinforced low-sodium diet - goal is systolic BP of 120 mm or less due to his thoracic aneurysm/aortic dilation Continue Metoprolol ER 100 mg QD and Amlodipine 5 mg QD He is reminded to continue monitoring his blood pressure regularly (3) Impaired fasting glucose: Code(s): R73.01 - Impaired fasting glucose Category: Medical Plan: His FBS was up slightly at 105 mg/dl and HgbA1c was at 5.9% on his recent labs; his HgbA1c was previously at 5.8% late last year Reinforced low calorie/low carb diet; exercise as tolerated (4) Thoracic aortic aneurysm: Comment: 4.4 cm by echo 05/2021 Code(s): I71.2 - Thoracic aortic aneurysm, without rupture Category: Medical Qualifiers: Thoracic aorta location: unspecified Presence of rupture: without rupture Qualified Code(s): I71.20 - Thoracic aortic aneurysm, without rupture, unspecified Plan: His thoracic aortic aneurysm was at 4.6 cm on his repeat echocardiogram done last year in July 2024 - (+) mild dilatation of the sinuses of Valsalva measuring 4.40 cm, moderate dilatation of the ascending aorta measuring 4.60 cm, and mild dilatation of the aortic arch measuring 3.90 cm He was at 4.4 cm on his echocardiogram done a couple of years ago on 07/24/2023 and was previously at 4.6 cm on his echocardiogram done on 06/28/2022 and at 4.4 cm on US in May 2021 Have emphasized to him again aggressive blood pressure control, with systolic BP of 120 mm or less as goal to help slow down progression of his aneurysm He is reminded as well to avoid strenuous isometric exercise and to seek emergency care if he develops sudden chest pains at any time Will continue with conservative follow-up and monitoring with?annual echocardiogram - will reorder this at his next follow up appointment Follow up with cardiology as scheduled (5) Ocular hypertension: Code(s): H40.059 - Ocular hypertension, unspecified eye Category: Medical Qualifiers: Laterality: unspecified laterality Qualified Code(s): H40.059 - Ocular hypertension, unspecified eye Plan: Follow up with ophthalmology as scheduled (6) Allergic rhinitis: Code(s): J30.9 - Allergic rhinitis, unspecified Category: Medical Qualifiers: Allergic rhinitis trigger: pollen Allergic rhinitis seasonality: unspecified Qualified Code(s): J30.1 - Allergic rhinitis due to pollen Plan: Continue Loratadine 10 mg QD PRN (7) History of cholesteatoma: Code(s): Z86.69 - Personal history of other diseases of the nervous system and sense organs Category: Medical Plan: Per request, will refer him to ENT in [place] for continuing management and follow up Patient used to see Dr. Renteria, who is retiring soon (8) Osteoarthritis of left foot: Code(s): M19.072 - Primary osteoarthritis, left ankle and foot Category: Medical Qualifiers: Osteoarthritis type: primary Qualified Code(s): M19.072 - Primary osteoarthritis, left ankle and foot Plan: His foot symptoms have remained adequately controlled lately - takes OTC Acetaminophen PRN He is reminded to avoid OTC NSAIDs as much as possible (9) Trigger finger, left middle finger: Code(s): M65.332 - Trigger finger, left middle finger Category: Medical Plan: He was previously seen for this by orthopedics and was scheduled for trigger finger surgery in July 2024 but patient apparently asked to hold off on surgery as his finger was reportedly feeling better at the time Follow up with orthopedics as scheduled (10) Anxiety: Code(s): F41.9 - Anxiety disorder, unspecified Category: Medical Plan: Continue Lorazepam 0.5 mg twice a day as needed (11) Depression: Code(s): F32.9 - Major depressive disorder, single episode, unspecified Category: Medical Qualifiers: Depression Type: major depressive disorder Major depression recurrence: recurrent Active/Remission status: currently active Major depression episode severity: unspecified Qualified Code(s): F33.9 - Major depressive disorder, recurrent, unspecified Plan: Follow up with Psychiatry as scheduled (12) Obesity (BMI 30-39.9): Code(s): E66.9 - Obesity, unspecified Category: Medical Plan: Reinforced diet/exercise as tolerated/lose weight - he was able to lose another 5 to 6 pounds since his last visit Plan Follow up in 4 months Orders: Orders Complete Blood Count Auto Diff 4 Months D64.9 - Anemia, unspecified Hemoglobin A1c 4 Months E11.9 - Type 2 diabetes mellitus without complications UA CC w/rflx Micro + Cult 4 Months R30.0 - Dysuria Vitamin D 25-OH Total 4 Months E55.9 - Vitamin D deficiency, unspecified Comprehensive [place]. Panel Fast 4 Months E78.00 - Pure hypercholesterolemia, unspecified Lipid Panel 4 Months E78.00 - Pure hypercholesterolemia, unspecified TSH reflex Free T4 4 Months E78.00 - Pure hypercholesterolemia, unspecified Referrals Ear/Nose/Throat Referral H93.8X9 - Other specified disorders of ear, unspecified ear, Z86.69 - Personal history of other diseases of the nervous system and sense organs
--- OUTSIDE RECORDS SUMMARY | 2025-06-16 16:38 | XMS_ITS | Patient Health Record ---
Author Organization [facility] Address [address] [place] [id number] Care Team Providers Care Roll Scale Man Name Role Phone Aj Garcia MDh Primary Care Provider Julio Son Unavailable [phone] Reason For Referral No Information Medications Medication [...] Problem History of adenomatous polyp of colon (483890187) History of adenomatous polyp of colon (V12.72) Active confirmed Plan Of Treatment Future Test Test Name Order Date COLONOSCOPY 10/08/2012 Insurance Providers Payer Name Payer Address Payer Phone Subscriber Number Group Number Insured Name Patient Relationship to Insured Coverage Start Date Coverage End Date MEDICARE OF [employer] [address] [place] [id number] MIKE VELARDE Self - patient is the insured Medical (General) History Medical History History ICD Code Hyperlipidemia Colonoscopy -removal of tubular adenomas Denies [place],DM,CVA,Lung disease,renal dise ase Left shoulder and left foot pain Anxiety Surgical History Surgery Date(Month/Year) cataract surgery right ear surgery-mastoid
== END 2025-06-16 16:27 | disposition home or self-care (01) ==
LOC: HO.HMCH 15:52
PROVIDERS: PCP Internal Medicine; Visit Provider Internal Medicine
DX: E78.00 Pure hypercholesterolemia, unspecified (principal); I10 Essential (primary) hypertension; E66.9 Obesity, unspecified; Z68.31 Body mass index [BMI] 31.0-31.9, adult; R73.01 Impaired fasting glucose; I71.20 Thoracic aortic aneurysm, without rupture, unspecified; H40.059 Ocular hypertension, unspecified eye; J30.1 Allergic rhinitis due to pollen; Z86.69 Personal history of other diseases of the nervous system and sense organs; M19.072 Primary osteoarthritis, left ankle and foot; M65.332 Trigger finger, left middle finger; F41.9 Anxiety disorder, unspecified

== ENCOUNTER → 2025-06-16 15:52 | Outpatient (BNVA) | payer MEDICARE, MEDICAID, SELFPAY | PROVIDERS: PCP Internal Medicine; Visit Provider Internal Medicine | DX: E78.00 Pure hypercholesterolemia, unspecified (principal); I10 Essential (primary) hypertension; R73.01 Impaired fasting glucose; I71.20 Thoracic aortic aneurysm, without rupture, unspecified; H40.059 Ocular hypertension, unspecified eye; J30.1 Allergic rhinitis due to pollen; Z86.69 Personal history of other diseases of the nervous system and sense organs; M19.072 Primary osteoarthritis, left ankle and foot; M65.332 Trigger finger, left middle finger; F41.9 Anxiety disorder, unspecified; F33.9 Major depressive disorder, recurrent, unspecified; E66.9 Obesity, unspecified; Z68.31 Body mass index [BMI] 31.0-31.9, adult; Z71.3 Dietary counseling and surveillance; Z87.891 Personal history of nicotine dependence | CPT/HCPCS: 96127; 99212 ==

== ENCOUNTER → 2025-08-28 10:39 | Outpatient (REF) | payer MEDICARE, MEDICAID, SELFPAY ==
--- NOTE | 2025-08-28 10:41 | CA_ITS ---
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 Normal LV ejection fraction 55-60% with grade 1 diastolic dysfunction 2. Mildly dilated left atrium 3. Normal cardiac valvular Dopplers 4. Moderately dilated ascending aorta at 4.5 cm 5. No gross pericardial effusion Findings Procedure Information Contrast agent, definity, is being given per protocol without apparent complications. Left Ventricle Normal left ventricular size, thickness, and systolic function. The visually estimated ejection fraction is between 55-60%. Spectral Doppler is indicative of an impaired relaxation filling pattern. E/E prime ratio is <8, consistent with normal filling pressures. Right Ventricle Normal right ventricular cavity size and systolic function. Atria The left atrium is mildly dilated. There is lipomatous hypertrophy of the interatrial septum. There is no evidence of interatrial shunt. The right atrium is normal in size. Aortic Valve There is mild calcification of the aortic valve. There is no aortic valve stenosis. There is no aortic valve regurgitation. Mitral Valve There is mild anterior and posterior mitral leaflet thickening. There is trace mitral valve regurgitation. There is no mitral valve stenosis. Pulmonic Valve The pulmonic valve is likely normal. There is trace pulmonic valve regurgitation. Tricuspid Valve Likely normal tricuspid valve structure and function. Tricuspid regurgitation envelope is inadequate for calculation of right ventricular systolic pressure. Normal right atrial pressure. Great Vessels The pulmonary artery was not well visualized. There is moderate dilatation of the ascending aorta measuring 4.50 cm. Small plaque is seen in the sino tubular ridge. Venous The inferior vena cava is normal in size and collapses greater than 50% with inspiration. Pericardium/Pleural There is no evidence of pericardial effusion. Prior Study Comparison No significant change compared to prior study dated: 08/07/2024. Measurements 2D Linear Measurements IVSd: 1.07 0.6-0.9/0.6-1.0 cm LVIDd: 5.82 3.9-5.3/4.2-5.9 cm LVIDd Index: 2.55 2.4-3.2/2.2-3.1 cm/m2 LVIDs: 3.93 2.0-3.6 cm LVPWd: 0.98 0.7-1.1 cm LA Diam: 3.60 2.7-3.8/3.0-4.0 cm LAIDs Index: 1.58 1.5-2.3 cm/m2 LV Mass: 302.50 67-162/88-224 g LV Mass Index: 132.67 43-95/49-115 g/m2 LVOT Diam: 2.40 3.0+(-)1.3 cm Mitral Valve MV Pk E: 0.53 MV PK A: 0.69 MV Decel Time: 203.00 E/A: 0.80 E'Lateral: 6.09 E'Medial: 5.77 E/E' Med: 9.20 E/E' Lat: 8.70 PHT: 60.00 MVA PHT: 3.67 Decel [place]: 2.61 Aortic Valve AoV Pk Robbin: 1.51 AoV Mn Robbin: 0.89 AoV VTI: 0.28 AoV Pk Grad: 9.00 Aov Mn Grad: 4.00 JOSE Cont.VTI: 3.83 LVOT LVOT Pk [place]bin: 1.08 LVOT Mn Robbin: 0.69 LVOT VTI: 0.24 LVOT Pk Grad: 5.00 LVOT Mn Grad: 2.00 LVOT Diam: 2.40 LVOT Area: 4.52 Diastolic Function MV Pk E: 0.53 MV Pk A: 0.69 E/A: 0.80 E'Medial: 5.77 E/E' Med: 9.20 E' Laterial: 6.09 E/E' Lat: 8.70 Right Ventricle TAPSE (mm): 21.90 TVS' Robbin: 12.40 Tricuspid Valve RA Press: 3.00 Great Vessels Aorta Sinus of Valsalva: 4.48 2.0-3.[address] [place]: 3.61 1.7-3.4 cm Ao Asc: 4.50 2.1-3.4 cm Updated in Other Vendor System with Status of Final James Martines MD electronically signed on 08/28/2025 2:55:34 PM with status of Final
--- OUTSIDE RECORDS SUMMARY | 2025-08-28 12:34 | XMS_ITS | Patient Health Record ---
Author Organization [facility] Address [address] [place] [id number] Care Team Providers Care Resource Development Manager Name Role Phone Aj Garcia MDh Primary Care Provider Julio Son Unavailable [phone] Reason For Referral No Information Medications Medication SIG (Take, Route, Frequency, Duration) Notes Start Date End Date Status Colyte with Flavor Packs 240 GM 1 ml one time Orally Once a day; Duration: 1 day(s) 10/08/2012 Active Tramadol & Dietary Manage Prod 50MG 10/22/2024 10/22/2024 Active LORazepam 0.5MG 10/22/2024 10/22/2024 Ac tive Aspir-81 81MG 10/22/2024 10/22/2024 Acti ve Simvastatin 40MG 10/22/2024 10/22/2024 A ctive Problems Problem Type SNOMED Code ICD Code Onset Dates Problem Status W/U Status Risk Notes Problem Colon cancer screening (160296043) Colon cancer screening (V76.51) Active confirmed Problem History of adenomatous polyp of colon (445957491) History of adenomatous polyp of colon (V12.72) Active confirmed Plan Of Treatment Future Test Test Name Order Date COLONOSCOPY 10/08/2012 Insurance Providers Payer Name Payer Address Payer Phone Subscriber Number Group Number Insured Name Patient Relationship to Insured Coverage Start Date Coverage End Date MEDICARE OF [employer] [address] [place] [phone] [id number] MIKE VELARDE Self - patient is the insured Medical (General) History Medical History History ICD Code Hyperlipidemia Colonoscopy -removal of tubular adenomas Denies [place],DM,CVA,Lung disease,renal dise ase Left shoulder and left foot pain Anxiety Surgical History Surgery Date(Month/Year) cataract surgery right ear surgery-mastoid
== END ==
LOC: HO.CARD 10:39
PROVIDERS: PCP Internal Medicine; Visit Provider Internal Medicine Cardiovascular Disease
DX: I10 Essential (primary) hypertension (principal); I71.20 Thoracic aortic aneurysm, without rupture, unspecified
CPT/HCPCS: 93306; Q9957

== ENCOUNTER → 2025-08-28 10:41 | Outpatient (BNV) | payer MEDICARE, MEDICAID, SELFPAY | PROVIDERS: PCP Internal Medicine; Visit Provider Internal Medicine Cardiovascular Disease | DX: I51.7 Cardiomegaly (principal); I71.21 Aneurysm of the ascending aorta, without rupture; I35.8 Other nonrheumatic aortic valve disorders | CPT/HCPCS: 93306 ==

== ENCOUNTER 2025-10-08 11:15 | Outpatient (AMB) | payer MEDICARE, MEDICAID, SELFPAY ==
[2025-10-08 11:25] VITALS: BP 128/78; PULSE 67; BMI 31.7
--- NOTE | 2025-10-08 11:25 | MHC.OFFVIS ---
Vital Signs 10/08/25 11:25 Height 6 ft Weight 233 lb 11.04 oz BMI 31.7 BP 128/78 Blood Pressure Location Lt brachial Position Sitting Pulse 67 Pulse Source Monitor Intake Visit Reasons: 1 year follow-up after echo Allergies Lisinopril Adverse Reaction (Intermediate, Uncoded 06/16/25 16:18) diarrhea Medication List - Last Reconciled 10/08/25 by James Martines MD amlodipine 5 mg PO DAILY 90 days aspirin (Adult Aspirin Regimen) 81 mg PO DAILY atorvastatin 40 mg PO BEDTIME 90 days ezetimibe 10 mg PO DAILY loratadine 10 mg PO DAILY PRN 90 days metoprolol succinate ER 100 mg PO DAILY HPI Comments Details: Bib comes for follow-up. He has no cardiac symptoms whatsoever. He takes all his medications. Most recent echocardiogram shows stable ascending aortic aneurysm at 4.5 cm. He denies any exertional chest pain or shortness of breath. No significant symptoms of palpitations at current WN orthopnea, PND, leg edema. No lightheadedness, syncope. [facility] Medical History (Updated 10/08/25 @ 12:36 by James Martines MD) History of cholesteatoma Allergic rhinitis Pure hypercholesterolemia Thoracic aortic aneurysm Obesity (BMI 30-39.9) Depression Anxiety History of alcohol use Osteoarthritis of left foot Malignant melanoma of face Ocular hypertension Impaired fasting glucose Palpitations Hypertension Hyperlipidemia Surgical History History of tooth extraction History of melanoma excision Status post Mohs surgery (~07/09/17) Family History Father Hypertension Stroke Mother Hypertension CVD (cardiovascular disease) Son No problems noted. Social History Housing: House Alcohol intake: former Patient Tobacco Use Status: Former Tobacco user e-Cigarette/Vaping Use: Never Used Second Hand Smoke Exposure: Yes service: No Current occupational status: retired Current occupation: right hand dominant Cognitive needs: No Hearing needs: Yes (hearing aide) Vision needs: No Review of Systems Const Reports no additional complaints and Denies weakness ENT Denies dizziness Card Reports no additional complaints, Denies chest pain, Denies chest pain with activity, Denies syncope, Denies rapid heart rate, Denies pedal edema, Denies edema, Denies leg edema, Denies lightheadedness, Denies palpitations, Denies dyspnea, Denies dyspnea on exertion and Denies orthopnea Resp Reports no additional complaints, Denies cough, Denies dyspnea and Denies dyspnea on exertion GI Denies hematochezia and Denies change in stool character Musc Denies abnormal gait, Denies muscle cramps, Denies muscle weakness, Denies numbness, Denies radiating pain into limb and Denies tingling Neuro Denies abnormal gait, Denies dizziness, Denies syncope, Denies numbness, Denies tingling and Denies weakness Endo Denies palpitations Physical Exam Vital Signs: Last Vital Signs Pulse 67 10/08/25 11:25 BP 128/78 10/08/25 11:25 BMI result Body Mass Index 31.7 Const General: cooperative, healthy appearing, comfortable and no acute distress Orientation/consciousness: patient oriented x3 Neck Neck: Yes normal visual inspection Resp Effort & Inspection: normal respiratory effort Auscultation: clear to auscultation bilaterally, no crackles, no rales, no rhonchi and no wheezes Cardio Jugular venous distension: no JVD Rate: regular rate Rhythm: regular rhythm Heart sounds: S1 normal heart sound present, S2 normal heart sound present, no murmurs and no rubs Neuro General: patient oriented x3 Extrem General: Yes normal to inspection Psych Appearance: grossly normal Mental Status: mental status grossly normal Speech and movement: Normal speech and movement present Office Procedures EKG Details: EKGs shows normal sinus rhythm normal EKGs [id number], Complete Assessment & Plan Assessment & Plan (1) Thoracic aortic aneurysm: Comment: 4.4 cm by echo 05/2021 Code(s): I71.2 - Thoracic aortic aneurysm, without rupture Category: Medical Qualifiers: Thoracic aorta location: unspecified Presence of rupture: without rupture Qualified Code(s): I71.20 - Thoracic aortic aneurysm, without rupture, unspecified Plan: Thoracic aortic aneurysm on this elderly gentleman which has remained stable over the last few years. Moderately enlargement. We discussed again management of the same. He had lack of follow up for about a year. Importance of regular follow-up was discussed with him. Management of thoracic aortic aneurysm was discussed. No surgical interventions required at this point time. Continue aggressive medical therapy and aggressive blood pressure control. Advised to avoid sudden strenuous isometric exercise. Symptoms of acute aortic syndrome were discussed advised to seek medical care. Follow-up echocardiogram in 1 year's time. (2) Hypertension: Code(s): I10 - Essential (primary) hypertension Category: Medical Qualifiers: Hypertension type: essential hypertension Qualified Code(s): I10 - Essential (primary) hypertension Plan: Hypertension which is currently well optimized on metoprolol amlodipine therapy. Importance of good blood pressure control was discussed. Target goal blood pressure less than 130/84. Low-salt diet was discussed. Advised to monitor blood pressure at home and maintain a log. Continue current statin and ezetimibe therapy with target goal LDL less than 100 mg/dL. Will follow up in the clinic in 1 year's time, sooner PRN. Thank you for allowing me to partake in his care Orders: Orders CA echo transthoracic complete 50 Weeks I71.20 - Thoracic aortic aneurysm, without rupture, unspecified Coding Level of Care Code Est Pt Level 4 (33463) Diagnoses Thoracic aortic aneurysm without rupture, unspecified part I71.20 Thoracic aorta location: unspecified Presence of rupture: without rupture Essential hypertension I10 Hypertension type: essential hypertension CPT Codes EKG - CPT: 41762-[id number], Complete ([id number])
--- OUTSIDE RECORDS SUMMARY | 2025-10-08 14:46 | XMS_ITS | Patient Health Record ---
Author Organization [facility] Address [address] [place] [id number] Care Team Providers Care Powder Hand Name Role Phone Robbi Garcia MDneth Primary Care Provider Julio Son Unavailable [phone] Reason For Referral No Information Medications Medication SIG (Take, Route, Frequency, Duration) Notes Start Date End Date Status Colyte with Flavor Packs 240 GM Solution Reconstituted 1 ml one time Orally Once a day; Duration: 1 day(s) 10/08/2012 Active Tramadol & Dietary Manage Prod 50MG Active LORazepam 0.5MG Ac tive Aspir-81 81MG Acti ve Simvastatin 40MG A ctive Social History Social History Additional Details Category Social Info Options Details Miscellaneous: Marital status: Occupation: unemployed Section Notes: Smoker; no alcohol x 13 britany hs-heavy before that Problems Problem Type SNOMED Code ICD Code Onset Dates Problem Status W/U Status Risk Notes Problem Colon cancer screening (239764416) Colon cancer screening (V76.51) Active confirmed Problem History of adenomatous polyp of colon (413365113) History of adenomatous polyp of colon (V12.72) Active confirmed Plan Of Treatment Future Test Test Name Order Date COLONOSCOPY 10/08/2012 Insurance Providers Payer Name Payer Address Payer Phone Subscriber Number Group Number Insured Name Patient Relationship to Insured Coverage Start Date Coverage End Date [place]ARE OF [place] [address] [place] [address] [id number] MIKE VELARDE Self - patient is the insured Medical (General) History Medical History History ICD Code Hyperlipidemia Colonoscopy -removal of tubular adenomas Denies [place],DM,CVA,Lung disease,renal dise ase Left shoulder and left foot pain Anxiety Surgical History Surgery Date(Month/Year) cataract surgery right ear surgery-mastoid
== END 2025-10-08 11:39 | disposition home or self-care (01) ==
LOC: HO.HCS 11:16
PROVIDERS: PCP Internal Medicine; Visit Provider Internal Medicine Cardiovascular Disease
DX: I71.20 Thoracic aortic aneurysm, without rupture, unspecified (principal); I10 Essential (primary) hypertension
CPT/HCPCS: 93010; 99214

== ENCOUNTER → 2025-10-08 11:15 | Outpatient (BNVA) | payer MEDICARE, MEDICAID, SELFPAY | PROVIDERS: PCP Internal Medicine; Visit Provider Internal Medicine Cardiovascular Disease | DX: I71.20 Thoracic aortic aneurysm, without rupture, unspecified (principal); I10 Essential (primary) hypertension | CPT/HCPCS: 93005; 99212 ==